=== PATIENT | male | born 1950 | race Caucasian/White ===

== ENCOUNTER 2018-02-05 08:40 | Emergency (ER) | payer MEDICAID, OTHER ==
[2018-02-05 08:46] VITALS: BMI 24.5
[2018-02-05 08:47] VITALS: RESP 16
[2018-02-05] MEDS ORDERED: Pantoprazole 40 mg EC Tab PO STA ×2 (08:57→10:06)
--- NOTE | 2018-02-05 09:00 | ED PDOC ---
HPI: Abdomen Time Seen by Provider: 02/05/18 08:57 Chief Complaint (Nursing): Abdominal Pain History Per: Patient Onset/Duration Of Symptoms: Days (2) Current Symptoms Are (Timing): Still Present Severity: Mild Pain Scale Rating Of: 2 Location Of Pain/Discomfort: Epigastric Quality Of Discomfort: Burning Associated Symptoms: denies: Fever, Nausea, Vomiting, Diarrhea Exacerbating Factors: None Alleviating Factors: None Additional Complaint(s): Burning epigastric pain x 2 days. Ran out of omeprazole 7 days ago. Denies NVD. Denies fever. Past Medical History Vital Signs: Last Vital Signs Temp 98.4 F 02/05/18 08:46 Pulse 87 02/05/18 08:46 Resp 16 02/05/18 08:46 BP 120/77 02/05/18 08:46 Pulse Ox 96 02/05/18 10:07 - Medical History PMH: Gastritis, HTN Denies: Anxiety, Bipolar Disorder, Depression, Paranoia, Post Traumatic Stress Disorder, Schizophrenia - Surgical History Surgical History: Denies: Appendectomy, CABG, Carotid Endarterectomy, Cholecystectomy, Coronary Stent, Tonsillectomy Other surgeries: Splenectomy post trauma - Family History Family History: States: Unknown Family Hx - Immunization History Hx Tetanus Toxoid Vaccination: Yes Hx Influenza Vaccination: No Hx Pneumococcal Vaccination: No - Home Medications Home Medications: Ambulatory Orders Medication Instructions Recorded Folic Acid 1 mg PO DAILY #14 tab 04/26/14 Metoprolol Tartrate [Lopressor] 25 mg PO BID #20 tab 04/26/14 Multivitamin Therapeutic Tab 1 tab PO DAILY #0 tab 04/26/14 [Thera Tab] Multivitamin [Hexavitamin] 1 tab PO DAILY #14 tab 04/26/14 Thiamine [B-1] 100 mg PO DAILY #14 tab 04/26/14 Omeprazole 40 mg PO DAILY #30 capsule. 02/05/18 - Allergies Allergies/Adverse Reactions: Allergies Allergy/AdvReac Type Severity Reaction Status Date / Time No Known Allergies Allergy Unverified 12/29/13 23:14 Review of Systems ROS Statement: Except As Marked, All Systems Reviewed And Found Negative Gastrointestinal: Positive for: Abdominal Pain. Negative for: Nausea, Vomiting , Diarrhea Physical Exam - Reviewed Nursing Documentation Reviewed: Yes Vital Signs Reviewed: Yes - Physical Exam Appears: Positive for: Non-toxic, No Acute Distress Head Exam: Positive for: ATRAUMATIC, NORMAL INSPECTION, NORMOCEPHALIC Skin: Positive for: Normal Color, Warm, DRY Eye Exam: Positive for: EOMI, Normal appearance, PERRL ENT: Positive for: Normal ENT Inspection Neck: Positive for: Normal, Painless ROM Cardiovascular/Chest: Positive for: Regular Rate, Rhythm Respiratory: Positive for: CNT, Normal Breath Sounds Gastrointestinal/Abdominal: Positive for: Soft, Tenderness (Mild epigastric tenderness.) Back: Positive for: Normal Inspection Extremity: Positive for: Normal ROM Neurologic/Psych: Positive for: Alert, Oriented - Laboratory Results Result Diagrams: 02/05/18 07:30 02/05/18 09:10 - ECG O2 Sat by Pulse Oximetry: 96 Disposition - Clinical Impression Clinical Impression: Gastritis - Patient ED Disposition Is Patient to be Admitted: No Counseled Patient/Family Regarding: Studies Performed, Diagnosis, Need For Followup, Rx Given - Disposition Referrals: Marques Shukla MD [Medical Doctor] - Disposition: Routine/Home Disposition Time: 10:05 Condition: FAIR Prescriptions: Omeprazole 40 mg PO DAILY #30 capsule. Instructions: Gastritis Forms: [facility] (Lao) Print Language: CITIZEN OF [place]
[2018-02-05] MEDS ORDERED: Pantoprazole 40 mg EC Tab PO ONE ×2 (09:14→11:01)
[2018-02-05 09:58] LABS: ALB/GLOB RATIO 1.3 (1.0-2.1); ALBUMIN 4.1 g/dL (3.5-5.0); ALT/SGPT 24 U/L (21-72); AST/SGOT 24 U/L (17-59); BLOOD UREA NITROGEN 7 mg/dl (9-20); CALCIUM 8.5 mg/dL (8.4-10.2); GFR AFRICAN-AMERICAN > 60; GFR NON-AFRICAN AMERICAN > 60
[2018-02-05 10:09] LABS: BASO # 0.1 K/uL (0.0-0.2); BASO % 0.8 % (0.0-2.0); EOS # 0.1 K/uL (0.0-0.7); EOS % 2.1 % (0.0-4.0); HEMOGLOBIN 12.2 g/dL (12.0-18.0); LYMPH # 1.7 K/uL (1.0-4.3); LYMPH % 24.8 % (20.0-40.0); MEAN CELL VOLUME 91.8 fl (80.0-94.0); MEAN CORPUSCULAR HGB CONC 33.8 g/dL (33.0-37.0); MEAN PLATELET VOLUME 8.8 fl (7.2-11.7); MONO # 0.9 K/uL (0.0-0.8); MONO % 13.7 % (0.0-10.0); NEUT % 58.6 % (50.0-75.0); NRBC % 0.3 % (0.0-0.0); RBC 3.92 Mil/uL (4.40-5.90); RED CELL DISTRIBUTION WIDTH 16.7 % (11.5-14.5); WHITE BLOOD COUNT 6.8 K/uL (4.8-10.8)
[2018-02-05 11:17] VITALS: BP 122/70; PULSE 82; TEMP 98.1; O2SAT 97
== END 2018-02-05 11:16 | disposition home or self-care (01) ==
LOC: H.ER 08:40
DX: K29.70 Gastritis, unspecified, without bleeding (principal); I10 Essential (primary) hypertension

== ENCOUNTER 2018-02-17 12:38 | Emergency (ER) | payer MEDICAID ==
[2018-02-17 12:38] VITALS: BMI 24.5
[2018-02-17 12:47] VITALS: TEMP 98.5; O2SAT 97
[2018-02-17 14:23] LABS: BASO # 0.1 K/uL (0.0-0.2); BASO % 1.1 % (0.0-2.0); EOS # 0.2 K/uL (0.0-0.7); EOS % 3.2 % (0.0-4.0); HEMOGLOBIN 12.2 g/dL (12.0-18.0); LYMPH % 35.7 % (20.0-40.0); MEAN CELL VOLUME 92.1 fl (80.0-94.0); MEAN CORPUSCULAR HEMOGLOBIN 30.8 pg (27.0-31.0); MEAN CORPUSCULAR HGB CONC 33.4 g/dL (33.0-37.0); MEAN PLATELET VOLUME 7.7 fl (7.2-11.7); MONO # 0.7 K/uL (0.0-0.8); NEUT # 2.6 K/uL (1.8-7.0); NRBC % 0.1 % (0.0-0.0); RBC 3.95 Mil/uL (4.40-5.90); RED CELL DISTRIBUTION WIDTH 16.1 % (11.5-14.5); WHITE BLOOD COUNT 5.5 K/uL (4.8-10.8)
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
[2018-02-17 14:48] LABS: SQUAMOUS EPITHIAL < 1 /hpf (0-5); URINE BACTERIA RARE (<OCC); URINE BILIRUBIN NEGATIVE (NEGATIVE); URINE BLOOD NEGATIVE (NEGATIVE); URINE CLARITY SLIGHTY-CLOUDY (Clear); URINE COLOR YELLOW (YELLOW); URINE GLUCOSE (UA) NEG (Normal); URINE LEUKOCYTE ESTERASE NEG Leu/uL (Negative); URINE PROTEIN NEGATIVE (NEGATIVE)
[2018-02-17 14:50] LABS: ALB/GLOB RATIO 1.3 (1.0-2.1); ALBUMIN 4.1 g/dL (3.5-5.0); ALT/SGPT 26 U/L (21-72); AST/SGOT 17 U/L (17-59); BLOOD UREA NITROGEN 8 mg/dl (9-20); CALCIUM 8.7 mg/dL (8.4-10.2); GFR AFRICAN-AMERICAN > 60; GFR NON-AFRICAN AMERICAN > 60; LIPASE 44 U/L (23-300)
[2018-02-17 15:06] LABS: INR 1.2; PROTHROMBIN TIME 12.8 Seconds (9.8-13.1)
[2018-02-17 15:08] LABS: PARTIAL THROMBOPLASTIN TIME 37.4 Seconds (25.6-37.1)
--- NOTE | 2018-02-17 15:12 | ED PDOC ---
- Laboratory Results Result Diagrams: 02/17/18 14:12 02/17/18 14:12 - ECG O2 Sat by Pulse Oximetry: 97 Medical Decision Making Medical Decision Makin:00 -Received patient endorsement by Dr. Montanez. Patient with abdominal pain pending CT scan, reassessment and final ER disposition. Accession No. : [id number] Patient Name / ID : AMINAH SANTIAGO / [id number] Exam Date : 02/17/2018 16:17:11 ( Addendum_Approved ) Study Comment : Sex / Age : M / 67Y Creator : Jonathan Abel MD Dictator : Jonathan Abel MD Child Custody Evaluator : Safety Technician : Jonathan Abel MD Approver2 : Report Date : 02/17/2018 17:05:09 My Comment : ADDENDUM: There is a prior study now available for review from 05/05/2014. The previously described postoperative changes are new since that study. In all likelihood, given the additional clinical information about the clinical presentation, this is likely ileus. Impression: Extensive postoperative changes. Given history and comparison with the prior study this likely represents ileus rather than early/incomplete small- bowel obstruction Communication of results: I discussed findings directly with the attending physician in the emergency department Dr. Gena Guzman. Addendum completed at 17: 34 [ Addendum Report Added by Jonathan Abel MD at 02/17/2018 17:34:30 ] Date of service: 02/17/2018 PROCEDURE: CT Abdomen and Pelvis with contrast HISTORY: upper abd pain, hx NSAID abuse COMPARISON: None. TECHNIQUE: Contrast dose: 85 cc Omnipaque 300. Radiation dose: Total exam DLP = 254.36 mGy-cm. This CT exam was performed using one or more of the following dose reduction techniques: Automated exposure control, adjustment of the mA and/or kV according to patient size, and/or use of iterative reconstruction technique. FINDINGS: LOWER THORAX: Unremarkable. LIVER: Hepatic steatosis. No focal masses. No intrahepatic bile duct dilatation or perihepatic ascites. GALLBLADDER AND BILE DUCTS: Unremarkable. PANCREAS: Unremarkable. No gross lesion or ductal dilatation. SPLEEN: Diminutive spleen likely related to prior splenectomy. ADRENALS: Unremarkable. No mass. KIDNEYS AND URETERS: Unremarkable. No hydronephrosis. No solid mass. VASCULATURE: Unremarkable. No aortic aneurysm. BOWEL: Focal dilatation of proximal small bowel loops likely early or incomplete small bowel obstruction. Postoperative findings/gastric surgical suture lines including gastroenterostomy identified. APPENDIX: No abnormalities to suggest acute appendicitis. No right lower quadrant inflammatory processes identified. PERITONEUM: Unremarkable. No free fluid. No free air. LYMPH NODES: Unremarkable. No enlarged lymph nodes. BLADDER: Unremarkable. REPRODUCTIVE: Unremarkable. BONES: No acute fracture. OTHER FINDINGS: None. IMPRESSION: Mildly dilated proximal loops of small bowel perhaps early or incomplete small bowel obstruction. Extensive postoperative changes left upper quadrant Additional benign and/or incidental findings described above. On reeval pt's abdominal benign with no tenderness or distension. Tolerated po and Pt eager to go home. Clinically is comfortable. Reviewed previous chart and pt had h/o of possible obstruction in 2013 that ultimately was nonsurgical. Most likely benign ileus like today. DW pt findings and plan of care. Clear fluid diet and follow up PMD in 24-48 hours. Disposition Counseled Patient/Family Regarding: Studies Performed, Diagnosis, Need For Followup, Rx Given - Clinical Impression Clinical Impression: Abdominal pain, Ileus, Gastritis - POA Present On Arrival: None - Disposition Referrals: Beti Roca MD [Medical Doctor] - 02/20/18 ([facility] DR NICOLE Gillis [facility]) Disposition: Routine/Home Disposition Time: 17:48 Condition: STABLE Prescriptions: Omeprazole 40 mg PO DAILY #30 capsule. Instructions: Stomach Ache and Stomach Upset Print Language: SLOVENIAN
[2018-02-17] MEDS ORDERED: Iohexol 300 100 ML IJ ONE (15:49)
[2018-02-17] MEDS ORDERED: Sodium Chloride 0.9% 50 ML IV ONE (15:49)
--- NOTE | 2018-02-17 17:04 | CARD ---
APPROVED REPORT Date of service: 02/17/2018 <Conclusion> Normal sinus rhythm Normal ECG
--- NOTE | 2018-02-17 17:07 | CT ---
Date of service: 02/17/2018 PROCEDURE: CT Abdomen and Pelvis with contrast HISTORY: upper abd pain, hx NSAID abuse COMPARISON: None. TECHNIQUE: Contrast dose: 85 cc Omnipaque 300. Radiation dose: Total exam DLP = 254.36 mGy-cm. This CT exam was performed using one or more of the following dose reduction techniques: Automated exposure control, adjustment of the mA and/or kV according to patient size, and/or use of iterative reconstruction technique. FINDINGS: LOWER THORAX: Unremarkable. LIVER: Hepatic steatosis. No focal masses. No intrahepatic bile duct dilatation or perihepatic ascites. GALLBLADDER AND BILE DUCTS: Unremarkable. PANCREAS: Unremarkable. No gross lesion or ductal dilatation. SPLEEN: Diminutive spleen likely related to prior splenectomy. ADRENALS: Unremarkable. No mass. KIDNEYS AND URETERS: Unremarkable. No hydronephrosis. No solid mass. VASCULATURE: Unremarkable. No aortic aneurysm. BOWEL: Focal dilatation of proximal small bowel loops likely early or incomplete small bowel obstruction. Postoperative findings/gastric surgical suture lines including gastroenterostomy identified. APPENDIX: No abnormalities to suggest acute appendicitis. No right lower quadrant inflammatory processes identified. PERITONEUM: Unremarkable. No free fluid. No free air. LYMPH NODES: Unremarkable. No enlarged lymph nodes. BLADDER: Unremarkable. REPRODUCTIVE: Unremarkable. BONES: No acute fracture. OTHER FINDINGS: None. IMPRESSION: Mildly dilated proximal loops of small bowel perhaps early or incomplete small bowel obstruction. Extensive postoperative changes left upper quadrant Additional benign and/or incidental findings described above.
[2018-02-17 18:23] VITALS: BP 124/70; PULSE 82; RESP 18
== END 2018-02-17 18:10 | disposition home or self-care (01) ==
LOC: H.ER 12:38
DX: K29.70 Gastritis, unspecified, without bleeding (principal); K56.7 Ileus, unspecified; I10 Essential (primary) hypertension
CPT/HCPCS: 74177; 80053; 81003; 83690; 85025; 85610; 85730; 93005; 96374; 99283; C9113; Q9967

== ENCOUNTER 2018-03-15 13:53 | Emergency (ER) | payer MEDICAID ==
[2018-03-15 13:54] VITALS: BMI 24.5
[2018-03-15 14:07] VITALS: BP 117/74; RESP 18; TEMP 98.1; O2SAT 99
[2018-03-15] MEDS ORDERED: Sodium Chloride 0.9% 1,000 ML IV STA ×2 (15:04→15:17)
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
[2018-03-15 15:24] LABS: BASO # 0.1 K/uL (0.0-0.2); BASO % 0.9 % (0.0-2.0); EOS # 0.2 K/uL (0.0-0.7); EOS % 2.3 % (0.0-4.0); HEMOGLOBIN 12.3 g/dL (12.0-18.0); LYMPH # 2.6 K/uL (1.0-4.3); LYMPH % 30.4 % (20.0-40.0); MEAN CELL VOLUME 91.5 fl (80.0-94.0); MEAN CORPUSCULAR HEMOGLOBIN 31.1 pg (27.0-31.0); MEAN CORPUSCULAR HGB CONC 33.9 g/dL (33.0-37.0); MEAN PLATELET VOLUME 7.8 fl (7.2-11.7); MONO # 0.7 K/uL (0.0-0.8); MONO % 7.5 % (0.0-10.0); NEUT # 5.1 K/uL (1.8-7.0); NEUT % 58.9 % (50.0-75.0); NRBC % 0.1 % (0.0-0.0); RBC 3.95 Mil/uL (4.40-5.90); RED CELL DISTRIBUTION WIDTH 15.9 % (11.5-14.5); WHITE BLOOD COUNT 8.6 K/uL (4.8-10.8)
[2018-03-15 15:31] VITALS: PULSE 86
[2018-03-15 16:07] LABS: ALB/GLOB RATIO 1.4 (1.0-2.1); ALBUMIN 4.1 g/dL (3.5-5.0); ALT/SGPT 22 U/L (21-72); AST/SGOT 21 U/L (17-59); BLOOD UREA NITROGEN 4 mg/dl (9-20); CALCIUM 8.7 mg/dL (8.4-10.2); GFR NON-AFRICAN AMERICAN > 60
--- NOTE | 2018-03-16 08:49 | CARD ---
APPROVED REPORT Date of service: 03/15/2018 <Conclusion> Normal sinus rhythm Left axis deviation Abnormal ECG
== END 2018-03-15 18:26 | disposition home or self-care (01) ==
LOC: H.ER 13:53
DX: R55 Syncope and collapse (principal); F10.129 Alcohol abuse with intoxication, unspecified; F17.200 Nicotine dependence, unspecified, uncomplicated; I10 Essential (primary) hypertension; Y90.3 Blood alcohol level of 60-79 mg/100 ml
CPT/HCPCS: 80053; 80320; 83605; 83735; 84100; 84484; 85025; 93005; 96361; 96374; 99284; J1885; J7030

== ENCOUNTER 2018-06-16 06:57 | Emergency (ER) | payer MEDICAID ==
[2018-06-16 07:00] VITALS: BMI 19.3
[2018-06-16] MEDS ORDERED: Albuterol-Ipratrop 3 mg / 0.5 (3 ml) UD INH STA (07:32)
[2018-06-16] MEDS ORDERED: Albuterol-Ipratrop 3 mg / 0.5 (3 ml) UD ONE (07:42)
--- NOTE | 2018-06-16 07:51 | ED PDOC ---
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 Patient reports he is currently homeless and stays at a homeless care home in [place]. Patient otherwise denies any chest pain, shortness of breath, vomiting, diarrhea, weakness, dizziness, abdominal pain, back pain, or urinary or bowel complaints. Past Medical History Reviewed: Historical Data, Nursing Documentation, Vital Signs Vital Signs: Last Vital Signs Temp 101 F H 06/16/18 07:46 Pulse 111 H 06/16/18 07:01 Resp 16 06/16/18 07:01 BP 138/76 06/16/18 07:01 Pulse Ox 96 06/16/18 07:01 - Medical History PMH: Dementia, Gastritis, HTN Denies: Anxiety, Bipolar Disorder, Depression, Paranoia, Post Traumatic Stress Disorder, Schizophrenia - Surgical History Surgical History: Denies: Appendectomy, CABG, Carotid Endarterectomy, Cholecystectomy, Coronary Stent, Tonsillectomy - Family History Family History: States: Unknown Family Hx - Immunization History Hx Tetanus Toxoid Vaccination: Yes Hx Influenza Vaccination: No Hx Pneumococcal Vaccination: No - Home Medications Home Medications: Ambulatory Orders Medication Instructions Recorded Omeprazole 40 mg PO DAILY #30 capsule. 02/05/18 Omeprazole 40 mg PO DAILY #30 capsule. 02/17/18 Ibuprofen [Motrin Tab] 600 mg PO Q8 PRN #60 tab 03/15/18 Omeprazole 40 mg PO DAILY #30 capsule. 03/15/18 Albuterol 0.5% [Albuterol 0.5% 2.5 mg IH Q6H PRN #3 inhaler 06/16/18 Inhal Oksana (2.5 mg/0.5 ml) UD] Azithromycin [Zithromax] 250 mg PO DAILY 5 Days tab 06/16/18 predniSONE [predniSONE Tab] 20 mg PO BID 5 Days tab 06/16/18 - Allergies Allergies/Adverse Reactions: Allergies Allergy/AdvReac Type Severity Reaction Status Date / Time No Known Allergies Allergy Verified 03/15/18 14:03 Review of Systems ROS Statement: Except As Marked, All Systems Reviewed And Found Negative Constitutional: Positive for: Fever ENT: Positive for: Nose Discharge (white), Nose Congestion Cardiovascular: Negative for: Chest Pain, Palpitations Respiratory: Positive for: Cough. Negative for: Shortness of Breath Gastrointestinal: Positive for: Nausea. Negative for: Vomiting, Abdominal Pain, Diarrhea, Constipation, Melena Genitourinary Male: Negative for: Dysuria, Frequency, Incontinence, Hematuria Musculoskeletal: Positive for: Other (body aches). Negative for: Back Pain Neurological: Positive for: Headache. Negative for: Weakness, Dizziness Physical Exam - Reviewed Nursing Documentation Reviewed: Yes Vital Signs Reviewed: Yes - Physical Exam Appears: Positive for: Non-toxic, No Acute Distress Head Exam: Positive for: ATRAUMATIC, NORMAL INSPECTION, NORMOCEPHALIC Skin: Positive for: Normal Color, Warm, Dry. Negative for: Rash Eye Exam: Positive for: EOMI, Normal appearance, PERRL ENT: Positive for: Nasal Congestion Neck: Positive for: Normal, Painless ROM, Supple Cardiovascular/Chest: Positive for: Regular Rate, Rhythm. Negative for: Murmur Respiratory: Positive for: Wheezing (trace expiratory wheezing) Gastrointestinal/Abdominal: Positive for: Normal Exam, Soft. Negative for: Tenderness Back: Positive for: Normal Inspection. Negative for: L CVA Tenderness, R CVA Tenderness, Vertebral Tenderness Extremity: Positive for: Normal ROM. Negative for: Pedal Edema, Deformity Neurologic/Psych: Positive for: Alert, Oriented. Negative for: Motor/Sensory Deficits Medical Decision Making Medical Decision Makin Plan: -CXR -Duoneb 3mL IH -Tylenol 975mg PO -Prednisone 60mg PO -Peak flow pre/post-treatment -Flu swab -Reevaluation Scribe Attestation: Documented by Logan Rico, acting as a scribe for Sergei Kwan MD. Provider Scribe Attestation: All medical record entries made by the Scribe were at my direction and personally dictated by me. I have reviewed the chart and agree that the record accurately reflects my personal performance of the history, physical exam, medical decision making, and the department course for this patient. I have also personally directed, reviewed, and agree with the discharge instructions and disposition. - ECG O2 Sat by Pulse Oximetry: 96 (RA) Pulse Ox Interpretation: Normal - Radiology X-Ray: Read By Radiologist X-Ray Interpretation: Infiltrates (mild right) - Progress ED Course And Treament: 853: Stable. AAOx3. Tolerated PO. Borderline pneumonia. Will rx zithromax. Steroids and albuterol. Breathing well. Disposition - Clinical Impression Clinical Impression: Pneumonia - Patient ED Disposition Is Patient to be Admitted: No Counseled Patient/Family Regarding: Studies Performed, Diagnosis, Need For Followup, Rx Given - Disposition Referrals: [facility] [Outside] - 06/19/18 Disposition: Routine/Home Disposition Time: 08:54 Condition: STABLE Additional Instructions: Return if not better in 3 days. Prescriptions: Albuterol 0.5% [Albuterol 0.5% Inhal Oksana (2.5 mg/0.5 ml) UD] 2.5 mg IH Q6H PRN #3 inhaler PRN Reason: Shortness Of Breath Azithromycin [Zithromax] 250 mg PO DAILY 5 Days tab predniSONE [predniSONE Tab] 20 mg PO BID 5 Days tab Instructions: Pneumonia in Adults Print Language: FRISIAN
--- NOTE | 2018-06-16 08:34 | RAD ---
Date of service: 06/16/2018 HISTORY: dyspnea COMPARISON: Chest radiographs 10/30/2010. FINDINGS: LUNGS: Borderline patchy density is question developing in the right base with linear atelectasis identified in the left base versus fibrosis. No prominent pneumonia appreciated bilaterally. PLEURA: No significant pleural effusion identified, no pneumothorax apparent. CARDIOVASCULAR: Calcific atherosclerotic changes are seen related to the thoracic aorta. Normal cardiac size. No pulmonary vascular congestion. OSSEOUS STRUCTURES: No significant abnormalities. VISUALIZED UPPER ABDOMEN: Normal. OTHER FINDINGS: None. IMPRESSION: Borderline early right basilar patchy infiltrate. Linear atelectasis or fibrosis left base. Remainder of the examination is stable and unremarkable appearing.
[2018-06-16 10:15] VITALS: BP 130/78; PULSE 98; RESP 19; TEMP 99; O2SAT 97
== END 2018-06-16 12:00 | disposition home or self-care (01) ==
LOC: H.ER 06:57
DX: J18.9 Pneumonia, unspecified organism (principal); F03.90 Unspecified dementia, unspecified severity, without behavioral disturbance, psychotic disturbance, mood disturbance, and anxiety; I10 Essential (primary) hypertension

== ENCOUNTER 2018-06-17 03:47 | Inpatient (IN) | payer MEDICAID ==
[2018-06-17] MEDS ORDERED: Sodium Chloride 0.9% 1,000 ML IV STA (04:01)
--- NOTE | 2018-06-17 04:26 | ED PDOC ---
HPI: Chest Pain Time Seen by Provider: 06/17/18 03:55 Chief Complaint (Nursing): Chest Pain Chief Complaint (Provider): Chest Pain History Per: Patient History/Exam Limitations: no limitations Onset/Duration Of Symptoms: Days (x7) Quality: Tightness Additional Complaint(s): 68 years old male with history of active smoking presents to ER for evaluation of cough and chest tightness onset 7 days ago. Patient reports he went to see Dr. Shukla, who prescribed cough medication and Ibuprofen but cough persisted. He sates he was in ER yesterday for fever and cough, was given some treatment but still feeling sick. Patient reports feeling worse today than yesterday. He r eports coughing up yellow phlegm. Patient denies any sick contact or recent travel. PMD: non provided Past Medical History Reviewed: Historical Data, Nursing Documentation, Vital Signs Vital Signs: Last Vital Signs Temp 101.1 F H 06/17/18 04:09 Pulse 145 H 06/17/18 04:09 Resp 26 H 06/17/18 04:09 BP 132/96 H 06/17/18 04:09 Pulse Ox 93 L 06/17/18 04:09 - Medical History PMH: Dementia, Gastritis, HTN Denies: Anxiety, Bipolar Disorder, Depression, Paranoia, Post Traumatic Stress Disorder, Schizophrenia - Surgical History Surgical History: Denies: Appendectomy, CABG, Carotid Endarterectomy, Cholecystectomy, Coronary Stent, Tonsillectomy - Family History Family History: States: Unknown Family Hx - Social History Current smoker - smoking cessation education provided: Yes Alcohol: Occasional Drugs: Denies - Immunization History Hx Tetanus Toxoid Vaccination: Yes Hx Influenza Vaccination: No Hx Pneumococcal Vaccination: No - Home Medications Home Medications: Ambulatory Orders Medication Instructions Recorded Ibuprofen [Motrin Tab] 600 mg PO Q8 PRN #60 tab 03/15/18 Omeprazole 40 mg PO DAILY #30 capsule. 03/15/18 predniSONE [predniSONE Tab] 20 mg PO BID 5 Days tab 06/16/18 Cyproheptadine HCl 4 mg PO BID 06/17/18 Donepezil HCl [Aricept] 10 mg PO DAILY 06/17/18 Gabapentin [Neurontin] 100 mg PO BID 06/17/18 - Allergies Allergies/Adverse Reactions: Allergies Allergy/AdvReac Type Severity Reaction Status Date / Time No Known Allergies Allergy Verified 03/15/18 14:03 Review of Systems ROS Statement: Except As Marked, All Systems Reviewed And Found Negative Cardiovascular: Positive for: Chest Pain (tightness) Respiratory: Positive for: Cough (with yellow phlegm) Physical Exam - Reviewed Nursing Documentation Reviewed: Yes Vital Signs Reviewed: Yes - Physical Exam Appears: Positive for: No Acute Distress Head Exam: Positive for: ATRAUMATIC, NORMOCEPHALIC Skin: Positive for: Normal Color, Warm (to touch), Dry Eye Exam: Positive for: Normal appearance, EOMI, PERRL ENT: Positive for: Normal ENT Inspection Neck: Positive for: Normal, Painless ROM, Supple Cardiovascular/Chest: Positive for: Regular Rate, Rhythm, Tachycardia Respiratory: Positive for: Normal Breath Sounds. Negative for: Wheezing Gastrointestinal/Abdominal: Positive for: Normal Exam, Soft. Negative for: Tenderness Back: Positive for: Normal Inspection. Negative for: L CVA Tenderness, R CVA Tenderness Extremity: Positive for: Normal ROM. Negative for: Tenderness, Deformity Neurologic/Psych: Positive for: Alert, Oriented (x3) - Laboratory Results Result Diagrams: 06/17/18 04:39 06/17/18 04:39 - ECG O2 Sat by Pulse Oximetry: 93 (RA) Pulse Ox Interpretation: Abnormal Medical Decision Making Medical Decision Making: Time: 400 A/P: 8 y/o male presents with fever and cough for 2 week --Patient is febrile and tachycardic, likely septic --Will treat for sepsis with fluids and antibiotics --Closely monitor patient 0600 --Patient has opacity (possibly multiple) on CXR --Will treat for CAP --Dr. Cho aware --Will admit to Tele ------- Scribe Attestation: Documented by Mackenzie Aguirre, acting as a scribe for Gil Bernal MD. Provider Scribe Attestation: All medical record entries made by the Scribe were at my direction and personally dictated by me. I have reviewed the chart and agree that the record accurately reflects my personal performance of the history, physical exam, medical decision making, and the department course for this patient. I have also personally directed, reviewed, and agree with the discharge instructions and disposition. Disposition - Clinical Impression Clinical Impression: Pneumonia, Sepsis - Disposition Disposition Time: 06:00 Condition: FAIR
[2018-06-17] MEDS ORDERED: Azithromycin 500 MG in Sodium Chloride 0.9% 250 ML IVPB STA (04:46)
[2018-06-17] MEDS ORDERED: cefTRIAXone 2 GM in Sodium Chloride 0.9% 100 ML IVPB STA (04:46)
[2018-06-17] MEDS ORDERED: Albuterol-Ipratrop 3 mg / 0.5 (3 ml) UD INH STA (04:47)
[2018-06-17 04:48] LABS: VENOUS BLOOD GAS BASE EXCESS 2.5 mmol/L (0.0-2.0); VENOUS BLOOD GAS PCO2 37 mmHg (40-60); VENOUS BLOOD GAS PO2 29 mm/Hg (30-55); VENOUS BLOOD PH 7.46 (7.32-7.43)
[2018-06-17 04:50] LABS: BASO % 0.4 % (0.0-2.0); HEMOGLOBIN 11.5 g/dL (12.0-18.0); LYMPH # 0.9 K/uL (1.0-4.3); LYMPH % 10.7 % (20.0-40.0); MEAN CELL VOLUME 88.6 fl (80.0-94.0); MEAN CORPUSCULAR HEMOGLOBIN 29.1 pg (27.0-31.0); MEAN CORPUSCULAR HGB CONC 32.8 g/dL (33.0-37.0); MEAN PLATELET VOLUME 8.1 fl (7.2-11.7); MONO % 11.6 % (0.0-10.0); NEUT # 6.6 K/uL (1.8-7.0); NEUT % 77.3 % (50.0-75.0); RBC 3.95 Mil/uL (4.40-5.90); RED CELL DISTRIBUTION WIDTH 16.1 % (11.5-14.5); WHITE BLOOD COUNT 8.6 K/uL (4.8-10.8)
[2018-06-17 04:53] LABS: INR 1.3; PROTHROMBIN TIME 15.2 Seconds (9.8-13.1)
[2018-06-17] MEDS ORDERED: cefTRIAXone (Rocephin) 1 gm Inj ONE (04:54)
[2018-06-17] MEDS ORDERED: Albuterol-Ipratrop 3 mg / 0.5 (3 ml) UD ONE (04:55)
[2018-06-17 04:58] LABS: ALBUMIN 3.9 g/dL (3.5-5.0); ALT/SGPT 24 U/L (21-72); AST/SGOT 22 U/L (17-59); BLOOD UREA NITROGEN 10 mg/dl (9-20); CALCIUM 8.6 mg/dL (8.4-10.2); GFR NON-AFRICAN AMERICAN > 60
[2018-06-17] MEDS ORDERED: Azithromycin 500 MG IV IVPB ONE (05:01)
[2018-06-17 05:50] LABS: SQUAMOUS EPITHIAL < 1 /hpf (0-5); URINE BACTERIA RARE (<OCC); URINE BILIRUBIN NEGATIVE (NEGATIVE); URINE BLOOD MODERATE (NEGATIVE); URINE CLARITY CLOUDY (Clear); URINE COLOR YELLOW (YELLOW); URINE GLUCOSE (UA) NEG (Normal); URINE LEUKOCYTE ESTERASE NEG Leu/uL (Negative); URINE PROTEIN 100 mg/dL (NEGATIVE)
[2018-06-17 07:20] LABS: VENOUS BLOOD GAS BASE EXCESS -3.6 mmol/L (0.0-2.0); VENOUS BLOOD GAS PCO2 34 mmHg (40-60); VENOUS BLOOD GAS PO2 36 mm/Hg (30-55); VENOUS BLOOD PH 7.39 (7.32-7.43)
--- NOTE | 2018-06-17 08:18 | RAD ---
Date of service: 06/17/2018 HISTORY: Sepsis Patient COMPARISON: 06/16/2018 FINDINGS: LUNGS: Mild interstitial changes with possible consolidation in the right lower lobe new since prior exam. PLEURA: No significant pleural effusion identified, no pneumothorax apparent. CARDIOVASCULAR: Aortic calcifications. Normal cardiac size. No pulmonary vascular congestion. OSSEOUS STRUCTURES: No significant abnormalities. VISUALIZED UPPER ABDOMEN: Normal. OTHER FINDINGS: None. IMPRESSION: Mild interstitial changes with possible consolidation in the right lower lobe new since prior exam.
[2018-06-17] MEDS: Pantoprazole 40 mg EC Tab PO SCH (09:02)
[2018-06-17] MEDS: Enoxaparin 40 mg Syringe SC SCH (09:09)
[2018-06-17] MEDS ORDERED: Influenza Vaccine (5 YR UP)/PF 60 MCG/0.5 ML SYR IM ONE (11:28)
[2018-06-17] MEDS ORDERED: Pneumococcal 23-Valent Vaccine IM ONE (11:28)
--- NOTE | 2018-06-17 17:33 | CARD ---
APPROVED REPORT Date of service: 06/17/2018 EKG Measurement Heart [id number] <Conclusion> Sinus tachycardia Left axis deviation Anteroseptal infarct, age undetermined Abnormal ECG
[2018-06-18] MEDS: Pantoprazole 40 mg EC Tab PO SCH (08:51)
[2018-06-18] MEDS: Enoxaparin 40 mg Syringe SC SCH (08:51)
[2018-06-18] MEDS: Azithromycin 500 MG in Sodium Chloride 0.9% 250 ML IVPB SCH (08:52)
[2018-06-18] MEDS: cefTRIAXone 2 GM in Sodium Chloride 0.9% 100 ML IVPB SCH (08:53)
--- NOTE | 2018-06-18 11:33 | PN ---
DATE: 06/18/2018 SUBJECTIVE: The patient was seen and examined. Interim events noted. The patient remains in the Progressive Care Unit. The patient feels better, coughing improved. No chest pain. No shortness of breath. The patient is ambulatory. The patient looks otherwise and better. PHYSICAL EXAMINATION: GENERAL: The patient is in no acute distress. VITAL SIGNS: Stable. HEART: S1 and S2 normal and regular. LUNGS: Good bilateral air exchange. ABDOMEN: Soft and nontender. EXTREMITIES: No edema. No calf swelling. No tenderness. No acute ischemia. CENTRAL NERVOUS SYSTEM: Essential unchanged. DIAGNOSTIC DATA: Available diagnostic data is reviewed. ASSESSMENT AND PLAN: Overall, the patient's general medical condition is improved. Telemetry monitoring does not show arrhythmia. Plan as ordered. Jhon Cho MD
[2018-06-19 05:31] LABS: HEMOGLOBIN 11.5 g/dL (12.0-18.0); MEAN CORPUSCULAR HEMOGLOBIN 29.5 pg (27.0-31.0); MEAN CORPUSCULAR HGB CONC 33.2 g/dL (33.0-37.0); RBC 3.9 Mil/uL (4.40-5.90); RED CELL DISTRIBUTION WIDTH 16.3 % (11.5-14.5); WHITE BLOOD COUNT 6.7 K/uL (4.8-10.8)
[2018-06-19 06:02] LABS: ALB/GLOB RATIO 0.9 (1.0-2.1); ALBUMIN 3.1 g/dL (3.5-5.0); ALT/SGPT 24 U/L (21-72); AST/SGOT 14 U/L (17-59); BLOOD UREA NITROGEN 4 mg/dl (9-20); CALCIUM 8.5 mg/dL (8.4-10.2); GFR NON-AFRICAN AMERICAN > 60
[2018-06-19] MEDS: Pantoprazole 40 mg EC Tab PO SCH (08:12)
[2018-06-19] MEDS: Enoxaparin 40 mg Syringe SC SCH (08:13)
--- NOTE | 2018-06-19 08:34 | HP ---
CHIEF COMPLAINT: Fever and cough. HISTORY OF PRESENT ILLNESS: The patient is not a good historian, but available history is as follows: This is a 68-year-old male with known history of hypertension and gastritis who was feeling sick for couple of days for which he went to primary care physician and was treated symptomatically. He also visited the emergency room and was also again treated and discharged. The patient continued to feel worse and came back to the emergency room as the patient's fever started going high, up to 102. The patient was evaluated in the emergency room and was found to have pneumonia and was admitted for further management. REVIEW OF SYSTEMS: Positive for generalized malaise, weakness, fatigue, tired, cough, chest pain, discomfort, and high fever. Review of systems otherwise is negative for headache, dizziness, syncope, loss of consciousness, nausea, vomiting, diarrhea, constipation, any new joint or extremity pain. Review of system of all other organ system is unremarkable. PAST MEDICAL HISTORY: Significant for hypertension. PAST SURGICAL HISTORY: Unremarkable. PERSONAL HISTORY: The patient is currently nonsmoker, nondrinker. No alcohol or substance abuse. MEDICATIONS: The patient is on medications, which is as per reconciliation sheet, which was reviewed and ordered. ALLERGIES: THE PATIENT IS NOT ALLERGIC TO ANY MEDICATIONS. FAMILY HISTORY: Noncontributory. PHYSICAL EXAMINATION: GENERAL: A well-built, well-nourished, disheveled male in no acute distress. VITAL SIGNS: Temperature 101, pulse 90, respirations 18, blood pressure 110/70. HEENT: Pupils reacting to light. No JVD. No thyromegaly. No lymphadenopathy. No nystagmus. Normocephalic, atraumatic skull. HEART: S1 and S2, normal, regular. No significant murmur, gallop, or rub is heard. LUNGS: Show good bilateral air exchange. The patient has crepitation. ABDOMEN: Soft, nontender. No organomegaly. No fluid. Bowel sounds are plus and normal. EXTREMITIES: No edema. No calf swelling. No tenderness. No acute ischemia. CENTRAL NERVOUS SYSTEM: Essentially unchanged. There is no sign of any acute gross focal motor or sensory neurological deficits. DIAGNOSTIC DATA: Available diagnostic data reviewed. Telemetry monitoring so far does not reveal significant arrhythmia. Chest x-ray seems to be overly penetrated film, pneumonia. WBCs are acceptable sodium . ADMITTING IMPRESSION: Community-acquired pneumonia, hypertension, gastritis. PLAN: As ordered. Case and plan discussed with the patient. Jhon Cho MD
[2018-06-19] MEDS: cefTRIAXone 2 GM in Sodium Chloride 0.9% 100 ML IVPB SCH (10:59)
[2018-06-19] MEDS: Azithromycin 500 MG in Sodium Chloride 0.9% 250 ML IVPB SCH (10:59)
--- NOTE | 2018-06-19 11:01 | PN ---
DATE: 06/19/2018 SUBJECTIVE: The patient seen and examined. Interim events noted. The patient remains in progressive care unit on telemetry monitoring. Feels improved. No cough. No shortness of breath. No chest pain. The patient was able to ambulate. The patient is eating well. Coughing improved. No chest pain. No shortness of breath. PHYSICAL EXAMINATION: GENERAL The patient is in no acute distress. VITAL SIGNS: Stable. HEART: S1, S2 normal and regular. LUNGS: Good bilateral air exchange. ABDOMEN: Soft, nontender. EXTREMITIES: No edema. No calf swelling. No tenderness. No acute ischemia. CENTRAL NERVOUS SYSTEM: Exam is essentially unchanged. DIAGNOSTIC DATA: Available diagnostic data reviewed. ASSESSMENT AND PLAN: Overall, the patient's general medical condition is stable and improving. Telemetry monitoring does not reveal significant arrhythmias. Plan as ordered. Jhon Cho MD
[2018-06-20 05:47] LABS: HEMOGLOBIN 11.7 g/dL (12.0-18.0); MEAN CELL VOLUME 88.4 fl (80.0-94.0); MEAN CORPUSCULAR HEMOGLOBIN 29.7 pg (27.0-31.0); MEAN CORPUSCULAR HGB CONC 33.6 g/dL (33.0-37.0); RBC 3.94 Mil/uL (4.40-5.90); RED CELL DISTRIBUTION WIDTH 16.2 % (11.5-14.5); WHITE BLOOD COUNT 5.4 K/uL (4.8-10.8)
[2018-06-20 06:09] LABS: BLOOD UREA NITROGEN 5 mg/dl (9-20); CALCIUM 8.6 mg/dL (8.4-10.2); GFR NON-AFRICAN AMERICAN > 60
--- NOTE | 2018-06-20 08:27 | CP.PCM.PN ---
<Aakash Modi - Last Filed: 06/20/18 08:28> Subjective - Date & Time of Evaluation Date of Evaluation: 06/20/18 Time of Evaluation: 08:05 - Subjective Subjective: Patient seen and examined at the bedside with Dr. Cho. Reports he feels better. No acute distress noted. Objective - Vital Signs/Intake and Output Vital Signs (last 24 hours): Temp Pulse Resp BP Pulse Ox 98.6 F 85 16 112/64 96 06/20/18 06:01 06/20/18 06:01 06/20/18 06:01 06/20/18 06:01 06/20/18 06:01 - Medications Medications: Current Medications Acetaminophen (Tylenol 325mg Tab) 975 mg PO ONCE PRN PRN Reason: Fever >100.4 F Last Admin: 06/17/18 04:23 Dose: 975 mg Acetaminophen (Tylenol 325mg Tab) 650 mg PO Q6 PRN PRN Reason: Fever >100.4 F Last Admin: 06/19/18 00:09 Dose: 650 mg Cyproheptadine HCl (Periactin) 4 mg PO BID [facility] Last Admin: 06/19/18 16:18 Dose: 4 mg Donepezil HCl (Aricept) 10 mg PO DAILY [facility] Last Admin: 06/19/18 08:12 Dose: 10 mg Enoxaparin Sodium (Lovenox) 40 mg SC DAILY [facility]; Protocol Last Admin: 06/19/18 08:13 Dose: 40 mg Gabapentin (Neurontin) 100 mg PO BID [facility] Last Admin: 06/19/18 16:18 Dose: 100 mg Azithromycin 500 mg/ Sodium (Chloride) 250 mls @ 250 mls/hr IVPB DAILY [facility]; P rotocol Last Admin: 06/19/18 10:59 Dose: 250 mls/hr Ceftriaxone Sodium 2 gm/ (Sodium Chloride) 100 mls @ 100 mls/hr IVPB DAILY [facility]; Protocol Last Admin: 06/19/18 10:59 Dose: 100 mls/hr Mirtazapine (Remeron) 15 mg PO HS [facility] Last Admin: 06/19/18 22:00 Dose: 15 mg Pantoprazole Sodium (Protonix Ec Tab) 40 mg PO DAILY [facility] Last Admin: 06/19/18 08:12 Dose: 40 mg - Labs Labs: 06/20/18 05:20 06/20/18 05:20 PT 15.2 Seconds (9.8-13.1) H 06/17/18 04:39 INR 1.3 06/17/18 04:39 APTT 34.0 Seconds (25.6-37.1) 06/17/18 04:39 - Constitutional Appears: No Acute Distress - Head Exam Head Exam: NORMAL INSPECTION - Eye Exam Eye Exam: Normal appearance - Respiratory Exam Respiratory Exam: Clear to Ausculation Bilateral, Rales (mild rales, R Lower base). absent: Accessory Muscle Use, Wheezes - Cardiovascular Exam Cardiovascular Exam: REGULAR RHYTHM, +S1, +S2 - GI/Abdominal Exam GI & Abdominal Exam: Normal Bowel Sounds - Extremities Exam Extremities Exam: absent: Pedal Edema - Neurological Exam Neurological Exam: Alert, Awake - Psychiatric Exam Psychiatric exam: Normal Affect - Skin Skin Exam: Normal Color Assessment and Plan - Assessment and Plan (Free Text) Assessment: 68 y/o male admitted for Sepsis secondary to HCAP. -No longer meets sepctic criteria, hemodynamically stable, no leukocytosis -Sputum Cx gram + cocci in chains (strep) gram + bacilli (prelim) -Bcx no growth -Will continue to treat for HCAP- Ceftriaxone and Azithromycin -F/U with PT recommendations for dipso -Consider changing to po abx Discussed case with Dr. Cho <Jhon Cho - Last Filed: 06/21/18 18:47> Objective - Vital Signs/Intake and Output Vital Signs (last 24 hours): Temp Pulse Resp BP Pulse Ox 98.6 F 79 16 126/75 95 06/21/18 15:52 06/21/18 15:52 06/21/18 15:52 06/21/18 15:52 06/21/18 15:52 Intake and Output: 06/21/18 06/21/18 11:59 23:59 Intake Total 1550 Balance 1550 - Medications Medications: Current Medications Acetaminophen (Tylenol 325mg Tab) 975 mg PO ONCE PRN PRN Reason: Fever >100.4 F Last Admin: 06/17/18 04:23 Dose: 975 mg Acetaminophen (Tylenol 325mg Tab) 650 mg PO Q6 PRN PRN Reason: Fever >100.4 F Last Admin: 06/19/18 00:09 Dose: 650 mg Cyproheptadine HCl (Periactin) 4 mg PO BID [facility] Last Admin: 06/21/18 16:51 Dose: 4 mg Donepezil HCl (Aricept) 10 mg PO DAILY [facility] Last Admin: 06/21/18 09:41 Dose: 10 mg Enoxaparin Sodium (Lovenox) 40 mg SC DAILY [facility]; Protocol Last Admin: 06/21/18 09:41 Dose: 40 mg Gabapentin (Neurontin) 100 mg PO BID [facility] Last Admin: 06/21/18 16:50 Dose: 100 mg Azithromycin 500 mg/ Sodium (Chloride) 250 mls @ 250 mls/hr IVPB DAILY [facility]; Protocol Last Admin: 06/21/18 10:56 Dose: 250 mls/hr Ceftriaxone Sodium 2 gm/ (Sodium Chloride) 100 mls @ 100 mls/hr IVPB DAILY [facility]; Protocol Last Admin: 06/21/18 09:45 Dose: 100 mls/hr Mirtazapine (Remeron) 15 mg PO HS [facility] Last Admin: 06/20/18 21:09 Dose: 15 mg Pantoprazole Sodium (Protonix Ec Tab) 40 mg PO DAILY [facility] Last Admin: 06/21/18 09:44 Dose: 40 mg - Labs Labs: 06/21/18 04:45 06/21/18 04:45 PT 15.2 Seconds (9.8-13.1) H 06/17/18 04:39 INR 1.3 06/17/18 04:39 APTT 34.0 Seconds (25.6-37.1) 06/17/18 04:39 Assessment and Plan - Assessment and Plan (Free Text) Assessment: Patient was personally seen and examined by me in rounds with residents. Available labs and diagnostic data reviewed. Case, Patient's condition and management plan discussed with residents in rounds. Agree with resident's progress note. Plan: As ordered.
[2018-06-20] MEDS: Enoxaparin 40 mg Syringe SC SCH (08:34)
[2018-06-20] MEDS: Pantoprazole 40 mg EC Tab PO SCH (08:34)
[2018-06-20] MEDS: cefTRIAXone 2 GM in Sodium Chloride 0.9% 100 ML IVPB SCH (08:36)
[2018-06-20] MEDS: Azithromycin 500 MG in Sodium Chloride 0.9% 250 ML IVPB SCH (08:42)
--- NOTE | 2018-06-20 10:19 | RAD ---
Date of service: 06/20/2018 HISTORY: f/u pna COMPARISON: 06/17/2018 TECHNIQUE: Chest PA and lateral FINDINGS: LUNGS: No infiltrate. Pulmonary hyperinflation consistent with emphysema. PLEURA: No significant pleural effusion identified. No pneumothorax apparent. CARDIOVASCULAR: No aortic atherosclerotic calcification present. Normal cardiac size. No pulmonary vascular congestion. OSSEOUS STRUCTURES: No significant abnormalities. VISUALIZED UPPER ABDOMEN: Normal. OTHER FINDINGS: None. IMPRESSION: Emphysema. No acute infiltrate.
--- NOTE | 2018-06-20 12:36 | CP.PCM.PCO ---
Assessment & Plan - Assessment and Plan (Free Text) Assessment: pt. reports feeling depressed, hopeless and helpless, reports poor appetite denies suicidal ideation f/u cxray, neg psych consult for depression
--- NOTE | 2018-06-20 15:10 | CP.PCM.CON ---
History of Present Illness - History of Present Illness History of Present Illness: consult requested for depression pt is a 68 years old male with history of active smoking presents to ER for evaluation of cough and chest tightness, admitted to medical floor for chest pain pt on evaluation reported long history of depression almost 20 years ago since he immigrated to [facility] from [place], pt stated he has multiple admissions at [facility] , reported he has one suicidal attempt in 2013 by jumping infront of a car, pt currently severely depressed, as he has no social support, homeless, reported poor energy , poor sleep, poor motivation and passive suicidal ideation pt speech is soft and slow, appears unkempt, partial eye contact depressed mood and affect alert awake oriented to person and place Past Patient History - Past Medical History & Family History Past Medical History?: No - Past Social History Smoking Status: Light Smoker < 10 Cigarettes Daily - CARDIAC Hx Cardiac Disorders: Yes Hx Hypertension: Yes - PULMONARY Hx Respiratory Disorders: No - NEUROLOGICAL Hx Neurological Disorder: Yes Hx Dementia: Yes - HEENT Hx HEENT Problems: No - RENAL Hx Chronic Kidney Disease: No - ENDOCRINE/METABOLIC Hx Endocrine Disorders: No - HEMATOLOGICAL/ONCOLOGICAL Hx Blood Disorders: No Hx AIDS: No Hx Human Immunodeficiency Virus (HIV): No - INTEGUMENTARY Hx Dermatological Problems: No - MUSCULOSKELETAL/RHEUMATOLOGICAL Hx Musculoskeletal Disorders: No Hx Falls: No - GASTROINTESTINAL Hx Gastrointestinal Disorders: Yes Hx Gastritis: Yes - GENITOURINARY/GYNECOLOGICAL Hx Genitourinary Disorders: No - PSYCHIATRIC Hx Psychophysiologic Disorder: No Hx Anxiety: No Hx Bipolar Disorder: No Hx Depression: No Hx Paranoia: No Hx Post Traumatic Stress Disorder: No Hx Schizophrenia: No Hx Substance Use: No - SURGICAL HISTORY Hx Surgeries: No - ANESTHESIA Hx Anesthesia: No Hx Anesthesia Reactions: No Hx Malignant Hyperthermia: No Meds Allergies/Adverse Reactions: Allergies Allergy/AdvReac Type Severity Reaction Status Date / Time No Known Allergies Allergy Verified 03/15/18 14:03 - Medications Medications: Current Medications Acetaminophen (Tylenol 325mg Tab) 975 mg PO ONCE PRN PRN Reason: Fever >100.4 F Last Admin: 06/17/18 04:23 Dose: 975 mg Acetaminophen (Tylenol 325mg Tab) 650 mg PO Q6 PRN PRN Reason: Fever >100.4 F Last Admin: 06/19/18 00:09 Dose: 650 mg Cyproheptadine HCl (Periactin) 4 mg PO BID [facility] Last Admin: 06/20/18 08:34 Dose: 4 mg Donepezil HCl (Aricept) 10 mg PO DAILY [facility] Last Admin: 06/20/18 08:34 Dose: 10 mg Enoxaparin Sodium (Lovenox) 40 mg SC DAILY [facility]; Protocol Last Admin: 06/20/18 08:34 Dose: 40 mg Gabapentin (Neurontin) 100 mg PO BID [facility] Last Admin: 06/20/18 08:34 Dose: 100 mg Azithromycin 500 mg/ Sodium (Chloride) 250 mls @ 250 mls/hr IVPB DAILY [facility]; Protocol Last Admin: 06/20/18 08:42 Dose: 250 mls/hr Ceftriaxone Sodium 2 gm/ (Sodium Chloride) 100 mls @ 100 mls/hr IVPB DAILY [facility]; Protocol Last Admin: 06/20/18 08:36 Dose: 100 mls/hr Mirtazapine (Remeron) 15 mg PO [facility] Last Admin: 06/19/18 22:00 Dose: 15 mg Pantoprazole Sodium (Protonix Ec Tab) 40 mg PO DAILY [facility] Last Admin: 06/20/18 08:34 Dose: 40 mg Results - Vital Signs Recent Vital Signs: Last Vital Signs Temp 98.8 F 06/20/18 08:28 Pulse 71 06/20/18 08:28 Resp 18 06/20/18 08:28 BP 124/60 06/20/18 08:28 Pulse Ox 99 06/20/18 08:28 - Labs Result Diagrams: 06/20/18 05:20 06/20/18 05:20 Labs: Laboratory Results - last 24 hr 06/20/18 06/20/18 05:20 05:20 WBC 5.4 RBC 3.94 L Hgb 11.7 L Hct 34.9 L MCV 88.4 MCH 29.7 MCHC 33.6 RDW 16.2 H Plt Count 444 H Sodium 135 Potassium 4.1 Chloride 101 Carbon Dioxide 24 Anion Gap 14 BUN 5 L Creatinine 0.5 L Est GFR ( Amer) > 60 Est GFR (Non-Af Amer) > 60 Random Glucose 101 Calcium 8.6 Assessment & Plan - Assessment and Plan (Free Text) Assessment: major depression recurrent severe Plan: pt at current mental status presenting with depressed mood and affect, pt would benefit from admission to psychiatry upon medical clearance for medication s tabilization
[2018-06-20 15:52] LABS: COLD AGGLUTININ NEGATIVE (NEGATIVE)
[2018-06-21 05:34] LABS: HEMOGLOBIN 11.5 g/dL (12.0-18.0); MEAN CELL VOLUME 88.8 fl (80.0-94.0); MEAN CORPUSCULAR HEMOGLOBIN 29.1 pg (27.0-31.0); MEAN CORPUSCULAR HGB CONC 32.8 g/dL (33.0-37.0); RBC 3.96 Mil/uL (4.40-5.90); RED CELL DISTRIBUTION WIDTH 16.5 % (11.5-14.5); WHITE BLOOD COUNT 4.4 K/uL (4.8-10.8)
[2018-06-21 05:52] LABS: ALBUMIN 3.4 g/dL (3.5-5.0); ALT/SGPT 27 U/L (21-72); AST/SGOT 20 U/L (17-59); BLOOD UREA NITROGEN 4 mg/dl (9-20); CALCIUM 8.6 mg/dL (8.4-10.2); GFR NON-AFRICAN AMERICAN > 60
[2018-06-21] MEDS: Enoxaparin 40 mg Syringe SC SCH (09:41)
[2018-06-21] MEDS: Pantoprazole 40 mg EC Tab PO SCH (09:44)
[2018-06-21] MEDS: cefTRIAXone 2 GM in Sodium Chloride 0.9% 100 ML IVPB SCH (09:45)
[2018-06-21] MEDS: Azithromycin 500 MG in Sodium Chloride 0.9% 250 ML IVPB SCH (10:56)
--- NOTE | 2018-06-21 14:14 | CP.PCM.DIS ---
Provider - Provider Date of Admission: 06/17/18 05:01 Attending physician: Jhon Cho MD Consults: 06/20/18 12:31 Psychiatry Consult Routine Comment: Consulting Provider: Jessica Mi Consulting Physician: Jessica Mi Reason for Consult: depression, poor appetite Time Spent in preparation of Discharge (in minutes): 35 Diagnosis - Discharge Diagnosis (1) Pneumonia Status: Resolved Hospital Course - Lab Results Lab Results: Micro Results 06/18/18 09:22 Sputum Gram Stain - Final 06/18/18 09:22 Sputum Sputum Culture - Final NORMAL ORAL EVAN 06/17/18 04:39 Blood Blood Culture - Preliminary NO GROWTH AFTER 4 DAYS 06/17/18 05:29 Urine,Clean Catch Urine Culture - Final No Growth (<1,000 CFU/ML) Most Recent Lab Values WBC 4.4 K/uL (4.8-10.8) L 06/21/18 04:45 RBC 3.96 Mil/uL (4.40-5.90) L 06/21/18 04:45 Hgb 11.5 g/dL (12.0-18.0) L 06/21/18 04:45 Hct 35.1 % (35.0-51.0) 06/21/18 04:45 MCV 88.8 fl (80.0-94.0) 06/21/18 04:45 MCH 29.1 pg (27.0-31.0) 06/21/18 04:45 MCHC 32.8 g/dL (33.0-37.0) L 06/21/18 04:45 RDW 16.5 % (11.5-14.5) H 06/21/18 04:45 Plt Count 530 K/uL (130-400) H 06/21/18 04:45 MPV 8.1 fl (7.2-11.7) 06/17/18 04:39 Neut % (Auto) 77.3 % (50.0-75.0) H 06/17/18 04:39 Lymph % (Auto) 10.7 % (20.0-40.0) L 06/17/18 04:39 [place] % (Auto) 11.6 % (0.0-10.0) H 06/17/18 04:39 Eos % (Auto) 0.0 % (0.0-4.0) 06/17/18 04:39 Baso % (Auto) 0.4 % (0.0-2.0) 06/17/18 04:39 Neut # (Auto) 6.6 K/uL (1.8-7.0) 06/17/18 04:39 Lymph # (Auto) 0.9 K/uL (1.0-4.3) L 06/17/18 04:39 [place] # (Auto) 1.0 K/uL (0.0-0.8) H 06/17/18 04:39 Eos # (Auto) 0.0 K/uL (0.0-0.7) 06/17/18 04:39 Baso # (Auto) 0.0 K/uL (0.0-0.2) 06/17/18 04:39 PT 15.2 Seconds (9.8-13.1) H 06/17/18 04:39 INR 1.3 06/17/18 04:39 APTT 34.0 Seconds (25.6-37.1) 06/17/18 04:39 pO2 36 mm/Hg (30-55) 06/17/18 07:00 VBG pH 7.39 (7.32-7.43) 06/17/18 07:00 VBG pCO2 34 mmHg (40-60) L 06/17/18 07:00 VBG HCO3 21.3 mmol/L 06/17/18 07:00 VBG Total CO2 21.6 mmol/L (22-28) L 06/17/18 07:00 VBG O2 Sat (Calc) 74.8 % (40-65) H 06/17/18 07:00 VBG Base Excess -3.6 mmol/L (0.0-2.0) L 06/17/18 07:00 VBG Potassium 3.3 mmol/L (3.6-5.2) L 06/17/18 07:00 Sodium 129.0 mmol/L (132-148) L 06/17/18 07:00 Chloride 99.0 mmol/L (98-107) 06/17/18 07:00 Glucose 117 mg/dL (75-110) H 06/17/18 07:00 Lactate 1.2 mmol/L (0.7-2.1) 06/17/18 07:00 FiO2 28.0 % 06/17/18 07:00 Sodium 136 mmol/l (132-148) 06/21/18 04:45 Potassium 4.0 MMOL/L (3.6-5.0) 06/21/18 04:45 Chloride 104 mmol/L (98-107) 06/21/18 04:45 Carbon Dioxide 24 mmol/L (22-30) 06/21/18 04:45 Anion Gap 12 (10-20) 06/21/18 04:45 BUN 4 mg/dl (9-20) L 06/21/18 04:45 Creatinine 0.4 mg/dl (0.8-1.5) L 06/21/18 04:45 Est GFR ( Amer) > 60 06/21/18 04:45 Est GFR (Non-Af Amer) > 60 06/21/18 04:45 Random Glucose 93 mg/dL (75-110) 06/21/18 04:45 Calcium 8.6 mg/dL (8.4-10.2) 06/21/18 04:45 Phosphorus 2.9 mg/dl (2.5-4.5) 06/19/18 04:25 Magnesium 2.0 MG/DL (1.6-2.3) 06/19/18 04:25 Total Bilirubin < 0.1 mg/dl (0.2-1.3) L 06/21/18 04:45 AST 20 U/L (17-59) 06/21/18 04:45 ALT 27 U/L (21-72) 06/21/18 04:45 Alkaline Phosphatase 61 U/L (38-126) 06/21/18 04:45 Total Protein 6.8 G/DL (6.3-8.2) 06/21/18 04:45 Albumin 3.4 g/dL (3.5-5.0) L 06/21/18 04:45 Globulin 3.4 gm/dL (2.2-3.9) 06/21/18 04:45 Albumin/Globulin Ratio 1.0 (1.0-2.1) 06/21/18 04:45 Venous Blood Potassium 3.3 mmol/L (3.6-5.2) L 06/17/18 07:00 Urine Color Yellow (YELLOW) 06/17/18 05:29 Urine Clarity Cloudy (Clear) 06/17/18 05:29 Urine pH 6.0 (5.0-8.0) 06/17/18 05:29 Ur Specific [place] 1.026 (1.003-1.030) 06/17/18 05:29 Urine Protein 100 mg/dL (NEGATIVE) 06/17/18 05:29 Urine Glucose (UA) Neg mg/dL (Normal) 06/17/18 05:29 Urine Ketones Negative mg/dL (NEGATIVE) 06/17/18 05:29 Urine Blood Moderate (NEGATIVE) 06/17/18 05:29 Urine Nitrate Negative (NEGATIVE) 06/17/18 05:29 Urine Bilirubin Negative (NEGATIVE) 06/17/18 05:29 Urine Urobilinogen 4.0 mg/dL (0.2-1.0) 06/17/18 05:29 Ur Leukocyte Esterase Neg Janelle/uL (Negative) 06/17/18 05:29 Urine RBC (Auto) 19 /hpf (0-3) H 06/17/18 05:29 Urine Microscopic WBC 2 /hpf (0-5) 06/17/18 05:29 Ur Squamous Epith Cells < 1 /hpf (0-5) 06/17/18 05:29 Urine Bacteria Rare (<OCC) 06/17/18 05:29 Cold Agglutinins Negative (NEGATIVE) 06/19/18 14:33 - Hospital Course Hospital Course: Pt is a 68 y/o male presented to [facility] with worsening cough and was found to be septic likley secondary to community acquired pneumonia as chest xray was significant for R. Lobe Infiltrate. He was treated for Ceftriaxnone and Azithromycin for 2 days until his symptoms improved and repeat Cxray showed resolution of infiltrates. During his admission, pt was telling staff he was depressed and psych was consulted. On evaluation, [facility] recommended patient be admitted to psych once medically cleared. Pt was evaluated this morning at the bedside with Dr. Cho. Pt was [facility] on 5 days of Azithromycin. Discharge Exam - Head Exam Head Exam: NORMAL INSPECTION - Eye Exam Eye Exam: Normal appearance - ENT Exam ENT Exam: Mucous Membranes Moist - Respiratory Exam Respiratory Exam: Clear to PA & Lateral. absent: Accessory Muscle Use, Rales, Wheezes - Cardiovascular Exam Cardiovascular Exam: REGULAR RHYTHM, +S1, +S2 - Extremities Exam Extremities exam: normal capillary refill, normal inspection, pedal pulses present - Neurological Exam Neurological exam: Alert, Oriented x3 - Psychiatric Exam Psychiatric exam: Depressed - Skin Skin Exam: Normal Color Discharge Plan - Discharge Medications Prescriptions: Azithromycin [Zithromax Tri-Preet] 500 mg PO DAILY #5 tablet - Follow Up Plan Condition: FAIR Disposition: HOME/ ROUTINE Instructions: Pneumonia, Adult (DC), Sepsis, Adult (DC) Additional Instructions: discharge to gerpsych Referrals: Jhon Cho MD [Staff Provider] -
[2018-06-21 20:01] VITALS: BP 141/88; PULSE 69; RESP 18; TEMP 98; O2SAT 96
[2018-06-21 21:30] LABS: LEGIONELLA AG URINE NEGATIVE (NEGATIVE)
== END 2018-06-21 21:20 | DRG 584 ==
LOC: H.ER 03:47 → H.TEL 05:01
PROVIDERS: ADMIT Internal Medicine; ATTEND Internal Medicine
PROC: 3E02340 Introduction of Influenza Vaccine into Muscle, Percutaneous Approach (ICD-10-PCS; principal; 2018-06-17)
PROC: 3E0234Z Introduction of Serum, Toxoid and Vaccine into Muscle, Percutaneous Approach (ICD-10-PCS; 2018-06-17)
DX: A41.9 Sepsis, unspecified organism (principal); J18.1 Lobar pneumonia, unspecified organism; F33.2 Major depressive disorder, recurrent severe without psychotic features; F03.90 Unspecified dementia, unspecified severity, without behavioral disturbance, psychotic disturbance, mood disturbance, and anxiety; I10 Essential (primary) hypertension; Y95 Nosocomial condition; F17.210 Nicotine dependence, cigarettes, uncomplicated; Z59.0 Homelessness; K29.70 Gastritis, unspecified, without bleeding; Z23 Encounter for immunization

== ENCOUNTER 2018-06-21 21:40 | Inpatient (IN) | payer MEDICAID ==
[2018-06-21] MEDS ORDERED: Bismuth Subsalicylate 262 mg/15 ml Sus (240 ml) PO PRN (21:59)
[2018-06-21] MEDS ORDERED: Alum-Mag Hydrox-Simethicone Susp (30 mL) PO PRN (21:59)
[2018-06-21] MEDS ORDERED: Magnesium Hydroxide Susp 30 ml UD PO PRN (21:59)
--- NOTE | 2018-06-21 22:05 | PCM.BM ---
<Dez Pavon - Last Filed: 06/21/18 22:17> Treatment Plan Problems - Problems identified on initial assessmt Hopelessness/Helplessness Date Initiated: 06/21/18 Time Initiated: 22:03 Assessment reference: NA Status: Active Nutrition More than Body Requirements Date Initiated: 06/21/18 Time Initiated: 22:04 Assessment reference: NA Status: Active Treatment assets and liabiliti Patient Assests: adapts well, cooperative, negotiates basic needs Patient Liabilities: live alone, poor support system, imparied memory - Milieu Protocol Maintain good personal hygiene: daily Encourage regular showers, daily Remind patient to perform daily oral care, daily Assist patient to perform ADL's Conduct patient checks and document Observation sheet: Q15 minutes Maintain personal safety: every shift Educate patient to report safety concerns to staff, every shift Monitor environment for contraband/sharps Medication safety: Monitor for expected outcome, potential side effects: every shift, Assess barriers to learning: daily, every shift, Assess readiness for medication education: daily, every shift <Danyelle Ayoub - Last Filed: 06/22/18 09:21> - Diagnosis (1) Major depressive disorder Status: Acute Interventions: Medication management, Individual and group therapy, Psychoeducation 06/22/18 09:21 <Glenda Amanda - Last Filed: 06/23/18 11:12> Family Contact Family involvement: Estuardo/SO not involved - Outside Agency [facility] Care involvment: Information-sharing Agency contact number: [phone] Discharge/Continuing Care - Education Needs Education Needs: Patient Medication, Patient Diagnosis/Disease Process, Patient Coping Skills, Patient Placement options, Patient Community resources, Patient Activities of Daily Living, Patient Nutrition, Patient Health Practices/Safety, Patient Personal Hygiene/Grooming, Patient Aftercare Safety Plan - Discharge Discharge Criteria: Tolerates medication w/o severe side effects, Free of Suicidal thoughts, Normal sleep pattern, Ability to care for self, Reduction of target symptoms Discharge to:: [facility] - Additional Comments 06/23/18 11:10 Pt was not seen in team meeting. Pt was discharged prior to scheduled team meeting. SW met with pt in the AM and assessment completed. Please refer to [facility] Progress Note dated 06/23/2018 for additional information. - Treatment Team Participation Discussed with Family/SO: No Was Patient/Family/SO present at Treatment Team Meeting: No
[2018-06-22 06:38] LABS: IRON 44 ug/dL (49-181)
[2018-06-22 06:49] LABS: % IRON SATURATION 14 % (20-55); TOTAL IRON BINDING CAPACITY 315 ug/dL (250-450)
[2018-06-22 06:54] LABS: T4 8.35 ug/dl (5.5-11.0)
[2018-06-22 07:11] LABS: FERRITIN 53.6 ng/Ml (17.9-464)
--- NOTE | 2018-06-22 08:39 | PCM.PSYCH ---
Initial Psychiatric Evaluation - Initial Psychiatric Evaluation Type of Admission: Voluntary Legal Status: Capacity Chief Complaint (in patient's own words): Depression Patient's Reaction to Hospitalization: HPI: 68 yo male w/ h/o MDD, transferred from medical unit, where he was admitted for community acquired pneumonia, treated with Azithromycin. Patient reported depressed mood, poor sleep, low energy, poor appetite. He denied suicidal ideation/plan/intent. At this time, patient reports that he wants to be discharged from the hospital and submitted a 48 hr letter. No AH/VH/paranoia/delusions/SI/HI. A + O x 4. PPHx: H/o 3 previous psychiatric admissions; reports that he has a history of suicide attempt in 2013 by jumping in front of a car. Currently being treated w/ Remeron 15 mg PO HS. No outpatient psychiatric follow-up for 1 year. PMHx: GERD, current tx for PNA ALL: NKDA SHx: Lives in a correction, from [place], denies drugs/etoh, smokes 1 carton of cig/ month, declined smoking cessation Current Medications: Active Medications Generic Name Dose Route Start Last Admin Trade Name Freq PRN Reason Stop Dose Admin Acetaminophen 650 mg 06/21/18 21:59 Tylenol 325mg Tab PO Q4 PRN Pain, moderate (4-7) Al Hydrox/Mg Hydrox/Simethicone 30 ml 06/21/18 21:59 Maalox Plus 30 Ml PO Q4 PRN Dyspepsia Azithromycin 500 mg 06/22/18 09:00 Zithromax PO DAILY [facility] Protocol Bismuth Subsalicylate 524 mg 06/21/18 21:59 Pepto-Bismol PO Q4 PRN Diarrhea Cyproheptadine HCl 4 mg 06/22/18 09:00 Periactin PO BID [facility] Donepezil HCl 10 mg 06/22/18 09:00 Aricept PO DAILY [facility] Gabapentin 100 mg 06/22/18 09:00 Neurontin PO BID [facility] Lorazepam 0.5 mg 06/21/18 21:59 Ativan PO 07/05/18 22:00 HS PRN Insomnia Lorazepam 0.5 mg 06/21/18 21:59 Ativan PO 07/05/18 22:00 Q6 PRN Anixety/Agitation Magnesium Hydroxide 30 ml 06/21/18 21:59 Milk Of Magnesia PO HS PRN Constipation Mirtazapine 15 mg 06/22/18 22:00 Remeron PO HS [facility] Pantoprazole Sodium 40 mg 06/22/18 09:00 Protonix Ec Tab PO DAILY [facility] Past Psychiatric History - Past Psychiatric History Previous Treatment History: Inpatient Pertinent Medical Hx (Current Medical&Sleep Prob, Allergies): Allergies Allergy/AdvReac Type Severity Reaction Status Date / Time No Known Allergies Allergy Verified 03/15/18 14:03 Omeprazole 40 mg PO DAILY #30 capsule. 03/15/18 Cyproheptadine HCl 4 mg PO BID 06/17/18 Donepezil HCl [Aricept] 10 mg PO DAILY 06/17/18 Gabapentin [Neurontin] 100 mg PO BID 06/17/18 Azithromycin [Zithromax Tri-Preet] 500 mg PO DAILY #5 tablet 06/21/18 Mirtazapine [Remeron] 15 mg PO HS tab 06/21/18 Review of Systems - Psychiatric Psychiatric: As Per HPI, Abnormal Sleep Pattern, Anhedonia, Anxiety, Change in Appetite, Depression, Difficulty Concentrating, Irritability Mental Status Examination - Personal Presentation Personal Presentation: Looks stated age - Affect Affect: Constricted - Motor Activity Motor Activity: Calm - Reliability in Providing Information Reliability in Providing Information: Fair - Speech Speech: Organized, Coherent - Mood Mood: Depressed - Formal Thought Process Formal Thought Process: No Impairment - Hallucinations/Delusions Additional comments: NO AH/VH/paranoia/delusions - Obsessions/Compulsions Obsessions: No Compulsions: No - Cognitive Functions Orientation: Person, Place, Situation, Time Sensorium: Alert Judgement: Intact, as evidence by: Good judgement Memory: Recent intact, as evidence by: Ability to recall events of the day - Risk Risk: Diminished functioning - Strength & Assets Inventory Strength & Assets Inventory: Cooperative - Limitations Limitations: Other (Homelessness, Poverty) DSM 5 DX - DSM 5 DSM 5 Diagnosis: Major Depressive Disorder, recurrent - Recommended/Plan of Treatment Treatment Recommendations and Plan of Treatment: Major Depressive Disorder -Admit to psychiatry unit -Pt submitted a 48 hr letter, will observe clinically and likely discharge alonso orrow as he does not meet criteria for involuntary commitment -Medicine consult -Individual and group therapy -Increase Remeron to 30 mg PO HS Discharge Plan and Discharge Criteria: Discharge when patient is psychiatrically stable - Smoking Cessation Smoking Cessation Initiated: No Reason for not providing: Patient declined
[2018-06-22] MEDS: Pantoprazole 40 mg EC Tab PO SCH (08:53)
--- NOTE | 2018-06-22 11:38 | CP.PCM.HP ---
<Aakash Modi - Last Filed: 06/22/18 15:55> History of Present Illness - History of Present Illness History of Present Illness: 63 yo M, pmhx of gastirits, and HTN, CAD, recently discharged from [facility] In Patient for treatment of Pneumonia. Pt was evaluated by psychiatry on floors and diagnosed Major Depression and recommended to be transferred to psych when medically cleared. He was treated with IV antibiotics until improvement of his symptoms and medically cleared for transfer to psych floors. Will continue Azithromycin for 5 days. Present on Admission - Present on Admission Any Indicators Present on Admission: No Past Patient History - Past Medical History & Family History Past Medical History?: No - Past Social History Smoking Status: Light Smoker < 10 Cigarettes Daily - CARDIAC Hx Cardiac Disorders: Yes Hx Hypertension: Yes - PULMONARY Hx Respiratory Disorders: No Hx Pneumonia: Yes - NEUROLOGICAL Hx Neurological Disorder: Yes Hx Dementia: Yes - HEENT Hx HEENT Problems: No - RENAL Hx Chronic Kidney Disease: No - ENDOCRINE/METABOLIC Hx Endocrine Disorders: No - HEMATOLOGICAL/ONCOLOGICAL Hx Blood Disorders: No Hx AIDS: No Hx Human Immunodeficiency Virus (HIV): No - INTEGUMENTARY Hx Dermatological Problems: No - MUSCULOSKELETAL/RHEUMATOLOGICAL Hx Musculoskeletal Disorders: No Hx Falls: Yes - GASTROINTESTINAL Hx Gastrointestinal Disorders: Yes Hx Gastritis: Yes - GENITOURINARY/GYNECOLOGICAL Hx Genitourinary Disorders: No - PSYCHIATRIC Hx Depression: Yes Hx Substance Use: No - SURGICAL HISTORY Hx Surgeries: No - ANESTHESIA Hx Anesthesia: No Hx Anesthesia Reactions: No Hx Malignant Hyperthermia: No Meds Home Medications: Home Medication List Medication Instructions Recorded Confirmed Type RX: Cyproheptadine HCl 4 mg PO BID 30 Days #60 tablet 06/22/18 Rx RX: Donepezil HCl [Aricept] 10 mg PO DAILY 30 Days #30 tablet 06/22/18 Rx RX: Gabapentin [Neurontin] 100 mg PO BID 30 Days #60 cap 06/22/18 Rx RX: Mirtazapine [Remeron] 30 mg PO HS #30 tab 06/22/18 Rx RX: Omeprazole 40 mg PO DAILY 30 Days #30 06/22/18 Rx capsule Allergies/Adverse Reactions: Allergies Allergy/AdvReac Type Severity Reaction Status Date / Time No Known Allergies Allergy Verified 03/15/18 14:03 Physical Exam - Constitutional Appears: No Acute Distress - Head Exam Head Exam: NORMAL INSPECTION - Eye Exam Eye Exam: Normal appearance - ENT Exam ENT Exam: Mucous Membranes Moist - Respiratory Exam Respiratory Exam: Clear to Auscultation Bilateral. absent: Rales, Wheezes - Cardiovascular Exam Cardiovascular Exam: REGULAR RHYTHM, +S1, +S2. absent: Systolic Murmur - GI/Abdominal Exam GI & Abdominal Exam: Normal Bowel Sounds - Extremities Exam Extremities exam: Positive for: normal inspection - Neurological Exam Neurological exam: Alert, Oriented x3 - Psychiatric Exam Psychiatric exam: Normal Affect - Skin Skin Exam: Normal Color Results - Vital Signs Recent Vital Signs: Last Vital Signs Temp 98.1 F 06/22/18 05:54 Pulse 73 06/22/18 05:54 Resp 18 06/22/18 05:54 BP 136/76 06/22/18 05:54 Pulse Ox - Labs Labs: Laboratory Results - last 24 hr 06/22/18 06/22/18 06/22/18 06:10 06:10 06:10 Iron 44 L TIBC 315 % Saturation 14 L Ferritin 53.6 Triglycerides 95 Cholesterol 107 LDL Cholesterol Direct 78 HDL Cholesterol 26 L Vitamin B12 375 Free T4 1.26 Thyroxine (T4) 8.35 TSH 3rd Generation 0.86 Assessment & Plan - Assessment and Plan (Free Text) Assessment: 63 yo M, pmhx of gastirits and recently discharged from [facility] In Patient for treatment of Pneumonia. Pt was evaluated by psychiatry on floors and diagnosed Major Depression and recommended to be transferred to psych when medically cleared. He was treated with IV antibiotics until improvement of his symptoms and medically cleared for transfer to psych floors. Will continue Azithromycin for 5 days. Pneumonia -Improving clinically -Afebrile, no leukocytosis -C/W Azithromycin for total 5 days Major Depression -Management as per Mya team -Currently on Aricept, Remeron Gastritis/GERD -Asymptomatic -C/W Al Hydroxide and Protonix daily Discussed Case with Dr. Cho <Jhno Cho - Last Filed: 06/25/18 17:38> Results - Vital Signs Recent Vital Signs: Last Vital Signs Temp 97.7 F 06/23/18 05:46 Pulse 79 06/23/18 05:46 Resp 19 06/23/18 05:46 BP 152/84 H 06/23/18 05:46 Pulse Ox Assessment & Plan - Assessment and Plan (Free Text) Assessment: Patient was personally seen and examined by me in rounds with residents. Available labs and diagnostic data reviewed. Case, Patient's condition and management plan discussed with residents in rounds. Agree with resident's progress note. Plan: As ordered.
[2018-06-22 13:12] LABS: FOLATE 12.4 ng/mL
[2018-06-23 05:46] VITALS: BP 152/84; PULSE 79; RESP 19; TEMP 97.7
[2018-06-23] MEDS: Pantoprazole 40 mg EC Tab PO SCH (08:39)
--- NOTE | 2018-06-23 09:26 | PCM.PYCHDC ---
Mental Status Examination - Mental Status Examination Orientation: Person, Place, Situation, Time Memory: Impaired (Mild memory deficits; patient able to function and care for self) Mood: Neutral Affect: Broad Speech: Appropriate Attention: WNL Concentration: WNL Association: WNL Fund of Knowledge: WNL Formal Thought Process: No Impairment Description of patient's judgement and insight: Fair I/J Psychotic Thoughts and Behaviors: Denies AH/VH/paranoia/delusions Suicidal Ideation: No Current Homicidal Ideation?: No Discharge Summary - Discharge Note Reason for Hospitalization: HPI: 68 yo male w/ h/o MDD, transferred from medical unit, where he was admitted for community acquired pneumonia, treated with Azithromycin. Patient reported depressed mood, poor sleep, low energy, poor appetite. He denied suicidal ideation/plan/intent. At this time, patient reports that he wants to be discharged from the hospital and submitted a 48 hr letter. No AH/VH/paranoia/delusions/SI/HI. A + O x 4. PPHx: H/o 3 previous psychiatric admissions; reports that he has a history of suicide attempt in 2012 by jumping in front of a car. Currently being treated w/ Remeron 15 mg PO HS. No outpatient psychiatric follow-up for 1 year. PMHx: GERD, current tx for PNA ALL: NKDA SHx: Lives in a halfway, from [place], denies drugs/etoh, smokes 1 carton of cig/ month, declined smoking cessation Laboratory Data: Abnormal Lab Results 06/22/18 06/22/18 06:10 06:10 Hemoglobin A1c 6.0 Folate 12.4 Consultations:: List each consultation separately and include: 1. Reason for request. 2. Findings. 3. Follow-up Consultations: Medicine Summary of Hospital Course include:: 1. Description of specific treatment plan utilized for patients during their course of treatmen. 2. Summarize the time- course for resolution of acute symptoms and/or regressed behaviors. 3. Describe issues identified and worked on during hospitalization. 4. Describe medication utilized. 5. Describe medical problems identified and treated. 6. Reassessment of suicide risk Summary of Hospital Course: Patient was admitted to the psychiatry unit. Individual and group therapy were provided. Remeron was increased to 30 mg PO HS. He submitted a 48 hr letter requesting to be discharged. He denies severe depression/anxiety; denies AH/VH/SI/HI. He is psychiatrically stable for discharge at this time. - Diagnosis (1) Major depressive disorder Current Visit: Yes Status: Chronic - Final Diagnosis (DSM 5) Condition upon Discharge: STABLE DSM 5: Major Depressive Disorder Disposition: HOME/ ROUTINE Follow-up Treatment Plan: Major Depressive Disorder -Continue Remeron to 30 mg PO HS -Continue Aricept 10 mg PO HS Prescriptions/Medication Reconciliation: Cyproheptadine HCl 4 mg PO BID 30 Days #60 tablet Donepezil HCl [Aricept] 10 mg PO DAILY 30 Days #30 tablet Gabapentin [Neurontin] 100 mg PO BID 30 Days #60 cap Mirtazapine [Remeron] 30 mg PO HS #30 tab Omeprazole 40 mg PO DAILY 30 Days #30 capsule.dr - Smoking Cessation Smoking Cessation Medication prescribed: No Reason for not providing: Patient declined - Antipsychotic Medications Pt discharged on 2 or more routine antipsychotic medications: No
--- NOTE | 2018-06-23 11:41 | PN ---
DATE: 06/23/2018 SUBJECTIVE: The patient seen and examined. Interim events noted. Psychiatry evaluation noted and appreciated. The patient remains in geropsych unit. The patient has signed 48-hour notice and is going to be discharged today. The patient feels okay. No cough, chest pain, or shortness of breath. PHYSICAL EXAMINATION: GENERAL: The patient is in no acute distress. VITAL SIGNS: Stable. HEART: S1, S2 normal, regular. LUNGS: Good bilateral air exchange. ABDOMEN: Soft, nontender. EXTREMITIES: Some edema. No calf swelling. No tenderness. No acute ischemia. PURSE MAKER: Essentially unchanged. ASSESSMENT AND PLAN: Overall, the patient is medically stable. The patient is for discharge today. Case and plan discussed with the patient. The patient will be followed up by their primary care physician, Dr. Jarquin within a week. Plan as ordered. Jhon Cho MD
== END 2018-06-23 10:30 | disposition home or self-care (01) | DRG 430 ==
LOC: H.STEP 21:43
PROVIDERS: ADMIT Psychiatry & Neurology Psychiatry; ATTEND Psychiatry & Neurology Psychiatry
PROC: GZHZZZZ Group Psychotherapy (ICD-10-PCS; principal; 2018-06-21)
PROC: GZ58ZZZ Individual Psychotherapy, Cognitive-Behavioral (ICD-10-PCS; 2018-06-21)
DX: F33.9 Major depressive disorder, recurrent, unspecified (principal); J18.9 Pneumonia, unspecified organism; I25.10 Atherosclerotic heart disease of native coronary artery without angina pectoris; I10 Essential (primary) hypertension; K21.9 Gastro-esophageal reflux disease without esophagitis; K29.70 Gastritis, unspecified, without bleeding; F17.210 Nicotine dependence, cigarettes, uncomplicated; Z87.01 Personal history of pneumonia (recurrent); Z91.5 Personal history of self-harm

== ENCOUNTER 2018-07-20 23:25 | Emergency (ER) | payer SELFPAY ==
[2018-07-20 23:29] VITALS: O2SAT 96
--- NOTE | 2018-07-21 03:52 | ED PDOC ---
HPI: General Adult Time Seen by Provider: 07/21/18 01:48 Chief Complaint (Nursing): Lower Extremity Problem/Injury Chief Complaint (Provider): Lower Extremity Problem/Injury History Per: Patient History/Exam Limitations: no limitations Onset/Duration Of Symptoms: Sudden Onset Current Symptoms Are (Timing): Still Present Additional Complaint(s): 68 year old male, well-known to ED for multiple visits relating to alcohol abuse, presents with general weakness of the lower extremities. Patient called 911 while [facility] at [facility]. He denies any fever, chills, cough, shortness of breath, nausea, vomiting, abdominal pain, or diarrhea. PCP: Dr. Florence Barnett Past Medical History Reviewed: Historical Data, Nursing Documentation, Vital Signs Vital Signs: Last Vital Signs Temp 98.8 F 07/20/18 23:27 Pulse 93 H 07/20/18 23:27 Resp 16 07/20/18 23:27 BP 118/72 07/20/18 23:27 Pulse Ox 96 07/20/18 23:27 - Medical History PMH: Dementia, Depression, Gastritis, HTN, Pneumonia Denies: Anxiety, Bipolar Disorder, HIV, Paranoia, Post Traumatic Stress Disorder, Chronic Kidney Disease, Schizophrenia - Surgical History Surgical History: Denies: Appendectomy, CABG, Carotid Endarterectomy, Cholecystectomy, Coronary Stent, Tonsillectomy - Family History Family History: States: Unknown Family Hx - Immunization History Hx Tetanus Toxoid Vaccination: Yes Hx Influenza Vaccination: No Hx Pneumococcal Vaccination: No - Home Medications Home Medications: Ambulatory Orders Medication Instructions Recorded Cyproheptadine HCl 4 mg PO BID 30 Days #60 tablet 06/22/18 Donepezil HCl [Aricept] 10 mg PO DAILY 30 Days #30 tablet 06/22/18 Gabapentin [Neurontin] 100 mg PO BID 30 Days #60 cap 06/22/18 Mirtazapine [Remeron] 30 mg PO HS #30 tab 06/22/18 Omeprazole 40 mg PO DAILY 30 Days #30 06/22/18 capsule. - Allergies Allergies/Adverse Reactions: Allergies Allergy/AdvReac Type Severity Reaction Status Date / Time No Known Allergies Allergy Verified 07/20/18 23:27 Review of Systems ROS Statement: Except As Marked, All Systems Reviewed And Found Negative Constitutional: Negative for: Fever, Chills Respiratory: Negative for: Cough, Shortness of Breath Gastrointestinal: Negative for: Nausea, Vomiting, Abdominal Pain, Diarrhea Neurological: Positive for: Weakness (lower extremities) Physical Exam - Reviewed Nursing Documentation Reviewed: Yes Vital Signs Reviewed: Yes - Physical Exam Appears: Positive for: Non-toxic, No Acute Distress Head Exam: Positive for: ATRAUMATIC, NORMAL INSPECTION, NORMOCEPHALIC Skin: Positive for: Normal Color Eye Exam: Positive for: Normal appearance ENT: Positive for: Normal ENT Inspection Neck: Positive for: Normal Cardiovascular/Chest: Positive for: Regular Rate, Rhythm Respiratory: Positive for: Normal Breath Sounds. Negative for: Respiratory Distress Gastrointestinal/Abdominal: Positive for: Normal Exam, Soft. Negative for: Tenderness Extremity: Positive for: Normal ROM (upper/lower). Negative for: Pedal Edema, Calf Tenderness Neurologic/Psych: Positive for: Alert, Oriented. Negative for: Motor/Sensory Deficits - Laboratory Results Result Diagrams: 07/21/18 04:47 07/21/18 04:47 - ECG O2 Sat by Pulse Oximetry: 96 (RA) Pulse Ox Interpretation: Normal Medical Decision Making Medical Decision Making: Initial Impression: 68 year old male with generalized weakness of lower extremities. Initial Plan: * Labs * Accucheck Time: 0452 --Accucheck: 188 mg/dL. Time: 624 --Labs reviewed: no significant clinical abnormality. Patient is observed ambulating in ED with steady gait. Upon provider reevaluation, patient is medically stable and requires no further treatment in the ED at this time. Co unseling was provided and all questions were answered regarding diagnosis. There is agreement to discharge plan. Return if symptoms persist or worsen. Clinical Impression: Malingerer; Weakness Scribe Attestation: Documented by Mai Nichole, acting as a scribe for Walter Goff MD. Provider Scribe Attestation: All medical record entries made by the Scribe were at my direction and personally dictated by me. I have reviewed the chart and agree that the record accurately reflects my personal performance of the history, physical exam, medical decision making, and the department course for this patient. I have also personally directed, reviewed, and agree with the discharge instructions and disposition. Disposition - Clinical Impression Clinical Impression: Weakness, Malingerer - Patient ED Disposition Is Patient to be Admitted: No Counseled Patient/Family Regarding: Studies Performed, Diagnosis - Disposition Disposition: Routine/Home Disposition Time: 06:25 Condition: STABLE Instructions: Weakness (ED) Forms: [employer] (Uzbek) Print Language: SRI LANKAN
[2018-07-21 05:25] LABS: BASO # 0.1 K/uL (0.0-0.2); BASO % 0.9 % (0.0-2.0); EOS # 0.5 K/uL (0.0-0.7); EOS % 8.1 % (0.0-4.0); HEMOGLOBIN 11.8 g/dL (12.0-18.0); LYMPH # 2.4 K/uL (1.0-4.3); LYMPH % 37.5 % (20.0-40.0); MEAN CELL VOLUME 90.2 fl (80.0-94.0); MEAN CORPUSCULAR HEMOGLOBIN 29.6 pg (27.0-31.0); MEAN CORPUSCULAR HGB CONC 32.8 g/dL (33.0-37.0); MEAN PLATELET VOLUME 7.9 fl (7.2-11.7); MONO # 0.6 K/uL (0.0-0.8); MONO % 9.9 % (0.0-10.0); NEUT # 2.8 K/uL (1.8-7.0); NEUT % 43.6 % (50.0-75.0); NRBC % 0.1 % (0.0-0.0); RED CELL DISTRIBUTION WIDTH 16.8 % (11.5-14.5); WHITE BLOOD COUNT 6.5 K/uL (4.8-10.8)
[2018-07-21 05:37] LABS: ALB/GLOB RATIO 1.3 (1.0-2.1); ALT/SGPT 19 U/L (21-72); AST/SGOT 18 U/L (17-59); BLOOD UREA NITROGEN 6 mg/dl (9-20); CALCIUM 8.9 mg/dL (8.4-10.2); GFR NON-AFRICAN AMERICAN > 60
[2018-07-21 07:27] VITALS: BP 132/74; PULSE 84; RESP 18; TEMP 98.2
== END 2018-07-21 06:26 | disposition home or self-care (01) ==
LOC: H.ER 23:25
DX: Z76.5 Malingerer [conscious simulation] (principal); M62.81 Muscle weakness (generalized); F03.90 Unspecified dementia, unspecified severity, without behavioral disturbance, psychotic disturbance, mood disturbance, and anxiety; F32.9 Major depressive disorder, single episode, unspecified; I10 Essential (primary) hypertension
CPT/HCPCS: 80053; 82550; 82948; 83735; 85025; 99283; G0480

== ENCOUNTER 2018-11-07 05:29 | Inpatient (IN) | payer MEDICAID ==
--- NOTE | 2018-11-07 06:09 | ED PDOC ---
HPI: Psych/Substance Abuse Time Seen by Provider: 11/07/18 05:52 Chief Complaint (Nursing): Psychiatric Evaluation Chief Complaint (Provider): psychiatric evaluation History Per: Patient History/Exam Limitations: no limitations Onset/Duration Of Symptoms: Persistent Current Symptoms Are (Timing): Still Present Severity: Moderate Additional Complaint(s): 68 year old homeless male with a past medical history of depression presents to the ED for a psychiatric evaluation. Patient states that he has been experiencing depression and auditory hallucinations that tell him to harm himself. Patient states that he has no interest in his daily activities. Patient has had previous admissions for depression. PMD: none provided Past Medical History Reviewed: Historical Data, Nursing Documentation, Vital Signs Vital Signs: Last Vital Signs Temp 99.1 F 11/07/18 05:46 Pulse 95 H 11/07/18 05:46 Resp 20 11/07/18 05:46 BP 162/90 H 11/07/18 05:46 Pulse Ox 100 11/07/18 05:46 ADRIAN Report Viewed: Yes - Medical History PMH: Dementia, Depression, Gastritis, HTN, Pneumonia Denies: Anxiety, Bipolar Disorder, HIV, Paranoia, Post Traumatic Stress Disorder, Chronic Kidney Disease, Schizophrenia - Surgical History Surgical History: Denies: Appendectomy, CABG, Carotid Endarterectomy, Cholecystectomy, Coronary Stent, Tonsillectomy - Family History Family History: States: No Known Family Hx - Living Arrangements Living Arrangements: Other (homeless) - Social History Current smoker - smoking cessation education provided: No Alcohol: None Drugs: Denies - Immunization History Hx Tetanus Toxoid Vaccination: Yes Hx Influenza Vaccination: No Hx Pneumococcal Vaccination: No - Home Medications Home Medications: Ambulatory Orders Medication Instructions Recorded Cyproheptadine HCl 4 mg PO BID 30 Days #60 tablet 06/22/18 Donepezil HCl [Aricept] 10 mg PO DAILY 30 Days #30 tablet 06/22/18 Gabapentin [Neurontin] 100 mg PO BID 30 Days #60 cap 06/22/18 Mirtazapine [Remeron] 30 mg PO HS #30 tab 06/22/18 Omeprazole 40 mg PO DAILY 30 Days #30 06/22/18 capsule.dr - Allergies Allergies/Adverse Reactions: Allergies Allergy/AdvReac Type Severity Reaction Status Date / Time No Known Allergies Allergy Verified 07/20/18 23:27 Review of Systems ROS Statement: Except As Marked, All Systems Reviewed And Found Negative Psych: Positive for: Depression, Other (auditory hallucinations) Physical Exam - Reviewed Nursing Documentation Reviewed: Yes Vital Signs Reviewed: Yes - Physical Exam Appears: Positive for: Well, Non-toxic, No Acute Distress Head Exam: Positive for: ATRAUMATIC, NORMOCEPHALIC Skin: Positive for: Normal Color, Warm, Dry Eye Exam: Positive for: Normal appearance Cardiovascular/Chest: Positive for: Regular Rate, Rhythm Respiratory: Positive for: Normal Breath Sounds Neurological/Psych: Positive for: Awake, Alert, Oriented (3x), Mood/Affect (flat affect) - Laboratory Results Result Diagrams: 11/07/18 06:37 - ECG O2 Sat by Pulse Oximetry: 100 (RA) Pulse Ox Interpretation: Normal Medical Decision Making Medical Decision Makin:52 Initial impression: 68 year old male with acute depression Initial plan: * 1:1 observation * crisis evaluation * EKG * alcohol serum * CMP * drug screen urinary * CBC with differential * accucheck * urinalysis * revaluation 7:00 Patient signed out by me to Arturo Montanez III, DO pending crisis evaluation, labs, and reevaluation. ScribeAttestation: Documented byIngris Patel, acting as a scribe for Walter Goff MD. Provider ScribeAttestation: All medical record entries made by the Scribe were at my direction and personally dictated by me. I have reviewed the chart and agree that the record accurately reflects my personal performance of the history, physical exam, medical decision making, and the department course for this patient. I have also personally directed, reviewed, and agree with the discharge instructions and disposition. Disposition - Clinical Impression Clinical Impression: Depression - Disposition Disposition: Transfer of Care Disposition Time: 07:00 Condition: FAIR Forms: [employer] (Ukrainian)
[2018-11-07] MEDS ORDERED: Pantoprazole 40 mg EC Tab PO STA (06:43)
[2018-11-07 06:50] LABS: BASO # 0.1 K/uL (0.0-0.2); BASO % 0.9 % (0.0-2.0); EOS # 0.1 K/uL (0.0-0.7); EOS % 1.1 % (0.0-4.0); HEMOGLOBIN 10.8 g/dL (12.0-18.0); LYMPH # 1.6 K/uL (1.0-4.3); LYMPH % 16.6 % (20.0-40.0); MEAN CELL VOLUME 87.2 fl (80.0-94.0); MEAN CORPUSCULAR HEMOGLOBIN 29.2 pg (27.0-31.0); MEAN CORPUSCULAR HGB CONC 33.5 g/dL (33.0-37.0); MEAN PLATELET VOLUME 7.5 fl (7.2-11.7); MONO # 1.2 K/uL (0.0-0.8); NEUT # 6.8 K/uL (1.8-7.0); NEUT % 69.4 % (50.0-75.0); NRBC % 0.1 % (0.0-0.0); RBC 3.69 Mil/uL (4.40-5.90); WHITE BLOOD COUNT 9.9 K/uL (4.8-10.8)
[2018-11-07 06:57] LABS: URINE BILIRUBIN NEGATIVE (NEGATIVE); URINE BLOOD SMALL (NEGATIVE); URINE CLARITY SLIGHTY-CLOUDY (Clear); URINE COLOR YELLOW (YELLOW); URINE GLUCOSE (UA) NEG (NEGATIVE); URINE LEUKOCYTE ESTERASE NEG Leu/uL (Negative); URINE PROTEIN NEGATIVE (NEGATIVE); URINE UROBILINOGEN 0.2-1.0 mg/dL (0.2-1.0)
[2018-11-07 07:01] LABS: ALB/GLOB RATIO 1.3 (1.0-2.1); ALBUMIN 4.2 g/dL (3.5-5.0); ALT/SGPT 29 U/L (21-72); AST/SGOT 27 U/L (17-59); BLOOD UREA NITROGEN 4 mg/dl (9-20); CALCIUM 8.2 mg/dL (8.4-10.2); GFR NON-AFRICAN AMERICAN > 60
[2018-11-07] MEDS ORDERED: Pantoprazole 40 mg EC Tab PO ONE (07:09)
--- NOTE | 2018-11-07 07:18 | ED PDOC ---
- Laboratory Results Result Diagrams: 11/07/18 06:37 11/07/18 11:31 Lab Results: Total Bilirubin 0.6 mg/dl (0.2-1.3) 11/07/18 06:37 AST 27 U/L (17-59) 11/07/18 06:37 ALT 29 U/L (21-72) 11/07/18 06:37 Alkaline Phosphatase 76 U/L (38-126) 11/07/18 06:37 Total Protein 7.4 G/DL (6.3-8.2) 11/07/18 06:37 Albumin 4.2 g/dL (3.5-5.0) 11/07/18 06:37 Globulin 3.3 gm/dL (2.2-3.9) 11/07/18 06:37 Albumin/Globulin Ratio 1.3 (1.0-2.1) 11/07/18 06:37 Urine Color Yellow (YELLOW) 11/07/18 06:38 Urine Clarity Slighty-cloudy (Clear) 11/07/18 06:38 Urine pH 7.0 (5.0-8.0) 11/07/18 06:38 Ur Specific [place] 1.009 (1.003-1.030) 11/07/18 06:38 Urine Protein Negative mg/dL (NEGATIVE) 11/07/18 06:38 Urine Glucose (UA) Neg mg/dL (NEGATIVE) 11/07/18 06:38 Urine Ketones Trace mg/dL (NEGATIVE) 11/07/18 06:38 Urine Blood Small (NEGATIVE) 11/07/18 06:38 Urine Nitrate Negative (NEGATIVE) 11/07/18 06:38 Urine Bilirubin Negative (NEGATIVE) 11/07/18 06:38 Urine Urobilinogen 0.2-1.0 mg/dL (0.2-1.0) 11/07/18 06:38 Ur Leukocyte Esterase Neg Janelle/uL (Negative) 11/07/18 06:38 Urine RBC (Auto) 4 /hpf (0-3) H 11/07/18 06:38 Urine Microscopic WBC < 1 /hpf (0-5) 11/07/18 06:38 - ECG O2 Sat by Pulse Oximetry: 100 (RA) Pulse Ox Interpretation: Normal Medical Decision Making Medical Decision Makin:00 Dr. Montanez did not resume patient care as recognized. Patient care endorsed to Dr. Henson from Dr. Goff pending workup and crisis evaluation. 08:53 Patient continues to be on 1:1 observation in ED and he is resting comfortably. His blood work demonstrates he has slight anemia and sodium of 127, similar to his previous report. Blood work will be repeated after an half-hour when 1 L of normal saline is complete. 12:38 Patients repeat blood work demonstrated sodium of 127 therefore patient cannot be cleared for geriatric psychiatry so patient will admitted to medical services. crisis team aware of plan, and patient will be monitored via 1:1 observation on medical floor. 12:30 Dr. Flores works with Dr. Paulino and ERICKSON Werner who accepted the patient for hyponatremia and depression. Scribe Attestation: Documented by Kavin Ramírez, acting as a scribe for Ml Henson MD. Provider Scribe Attestation: All medical record entries made by the Scribe were at my direction and personally dictated by me. I have reviewed the chart and agree that the record accurately reflects my personal performance of the history, physical exam, medical decision making, and the department course for this patient. I have also personally directed, reviewed, and agree with the discharge instructions and disposition. Disposition Counseled Patient/Family Regarding: Studies Performed, Diagnosis - Clinical Impression Clinical Impression: Depression - POA Present On Arrival: None - Disposition Disposition: Admitted as In-Patient Disposition Time: 12:30 Condition: FAIR
[2018-11-07 07:22] LABS: BARBITURATES, UR NEGATIVE (NEGATIVE); BENZODIAZEPINES, UR NEGATIVE (NEGATIVE); OPIATES, UR NEGATIVE (NEGATIVE); PHENCYCLIDINE, UR NEGATIVE (NEGATIVE)
[2018-11-07] MEDS ORDERED: Sodium Chloride 0.9% 1,000 ML IV STA (08:53)
[2018-11-07 11:07] LABS: LIPASE 37 U/L (23-300)
[2018-11-07 11:57] LABS: ALB/GLOB RATIO 1.1 (1.0-2.1); ALBUMIN 3.6 g/dL (3.5-5.0); ALT/SGPT 27 U/L (21-72); AST/SGOT 41 U/L (17-59); BLOOD UREA NITROGEN 4 mg/dl (9-20); CALCIUM 7.5 mg/dL (8.4-10.2); GFR NON-AFRICAN AMERICAN > 60
[2018-11-07] MEDS: Sodium Chloride 0.9% 1,000 ML IV SCH (16:45)
--- NOTE | 2018-11-07 18:46 | CARD ---
APPROVED REPORT Date of service: 11/07/2018 EKG Measurement Heart [id number] <Conclusion> Normal sinus rhythm Left axis deviation Anteroseptal infarct, age undetermined Abnormal ECG
[2018-11-08 05:53] LABS: BLOOD UREA NITROGEN 6 mg/dl (9-20); CALCIUM 7.8 mg/dL (8.4-10.2); GFR NON-AFRICAN AMERICAN > 60
[2018-11-08] MEDS: Sodium Chloride 0.9% 1,000 ML IV SCH ×2 (06:52→10:29)
[2018-11-08] MEDS: Pantoprazole 40 mg EC Tab PO SCH (09:12)
--- NOTE | 2018-11-08 10:07 | CP.PCM.CON ---
History of Present Illness - History of Present Illness History of Present Illness: pt is a 68 year old male with a pastpsychiatric history of depression and alcohol use, currently non compliant with medications or follow up , presents to the ED with suicidal ideation and auditory hallucinations,. Patient states that he has been increasingly depressed due to being homeless and having financial difficulties, reported poor sleep, anhedonia, low energy, feeling hopeless having derogatory auditory hallucinations, he relapsed on alcohol two days ago and started having passive suicidal ideation, he came to ER seeking help pt currently on medical floor for management of hypokalemia Review of Systems - Psychiatric Additional comments: pt5 seen in bed, partial eye contact speech soft and slow depressed mood and affect, thought form coherent reported non command auditory hallucinations, passive suicidal ideation, alert awake ox3 partial insight and fair judgment Past Patient History - Past Medical History & Family History Past Medical History?: No - Past Social History Smoking Status: Never Smoked - CARDIAC Hx Cardiac Disorders: No Hx Hypertension: No - PULMONARY Hx Respiratory Disorders: No Hx Tuberculosis: No - NEUROLOGICAL HX Cerebrovascular Accident: No Hx Seizures: No - HEENT Hx HEENT Problems: No Other/Comment: Wears bifocal glasses. - RENAL Hx Chronic Kidney Disease: No - ENDOCRINE/METABOLIC Hx Endocrine Disorders: No - HEMATOLOGICAL/ONCOLOGICAL Hx Blood Disorders: No Hx AIDS: No Hx Cancer: No Hx Human Immunodeficiency Virus (HIV): No - INTEGUMENTARY Hx Dermatological Problems: No - MUSCULOSKELETAL/RHEUMATOLOGICAL Hx Musculoskeletal Disorders: No Hx Falls: Yes - GASTROINTESTINAL Hx Gastritis: Yes - GENITOURINARY/GYNECOLOGICAL Hx Sexually Transmitted Disorders: No - PSYCHIATRIC Hx Substance Use: No - SURGICAL HISTORY Hx Appendectomy: No Hx Carotid Endarterectomy: No Hx Cholecystectomy: No Hx Coronary Artery Bypass Graft: No Hx Coronary Stent: No Hx Tonsillectomy: No - ANESTHESIA Hx Anesthesia: No Hx Anesthesia Reactions: No Hx Malignant Hyperthermia: No Meds Allergies/Adverse Reactions: Allergies Allergy/AdvReac Type Severity Reaction Status Date / Time No Known Allergies Allergy Verified 07/20/18 23:27 - Medications Medications: Current Medications Acetaminophen (Tylenol 325mg Tab) 650 mg PO Q6 PRN PRN Reason: Pain, Mild (1-3) Last Admin: 11/08/18 09:13 Dose: 650 mg Sodium Chloride (Sodium Chloride 0.9%) 1,000 mls @ 70 mls/hr IV .[id number] PALOMA Stop: 11/08/18 14:17 Last Admin: 11/08/18 06:52 Dose: Not Given Pantoprazole Sodium (Protonix Ec Tab) 40 mg PO DAILY [facility] Last Admin: 11/08/18 09:12 Dose: 40 mg Results - Vital Signs Recent Vital Signs: Last Vital Signs Temp 99.0 F 11/08/18 07:55 Pulse 84 11/08/18 07:55 Resp 20 11/08/18 07:55 BP 150/75 11/08/18 07:55 Pulse Ox 97 11/08/18 07:55 - Labs Result Diagrams: 11/07/18 06:37 11/08/18 04:40 Labs: Laboratory Results - last 24 hr 11/07/18 11/07/18 11/07/18 06:37 11:31 23:00 Sodium 127 L 127 L Potassium 4.1 4.6 Chloride 93 L 95 L Carbon Dioxide 20 L 21 L Anion Gap 18 16 BUN 4 L 4 L Creatinine 0.4 L 0.4 L Est GFR ( Amer) > 60 > 60 Est GFR (Non-Af Amer) > 60 > 60 Random Glucose 99 91 Calcium 8.2 L 7.5 L Total Bilirubin 0.6 0.8 AST 27 41 ALT 29 27 Alkaline Phosphatase 76 58 Total Protein 7.4 6.8 Albumin 4.2 3.6 Globulin 3.3 3.2 Albumin/Globulin Ratio 1.3 1.1 Lipase 37 Urine Osmolality 253 L Ur Random Sodium 47 Ur Random Potassium 14.3 Alcohol, Quantitative 12 H 11/07/18 11/08/18 23:00 04:40 Sodium 130 L Potassium 4.0 Chloride 99 Carbon Dioxide 23 Anion Gap 12 BUN 6 L Creatinine 0.4 L Est GFR ( Amer) > 60 Est GFR (Non-Af Amer) > 60 Random Glucose 96 Calcium 7.8 L Total Bilirubin AST ALT Alkaline Phosphatase Total Protein Albumin Globulin Albumin/Globulin Ratio Lipase Urine Osmolality Ur Random Sodium 47 Ur Random Potassium Alcohol, Quantitative Assessment & Plan - Assessment and Plan (Free Text) Assessment: major depression recurrent severe with psychotic features alcohol abuse Plan: pt would benefit from admission to psychiatry upon medical clearance
--- NOTE | 2018-11-08 19:42 | CARD ---
APPROVED REPORT Date of service: 11/08/2018 EKG Measurement Heart [id number] <Conclusion> Normal sinus rhythm Possible Anterior infarct, age undetermined Abnormal ECG
--- NOTE | 2018-11-09 00:26 | CP.PCM.PN ---
Subjective - Date & Time of Evaluation Date of Evaluation: 11/08/18 Time of Evaluation: 09:45 - Subjective Subjective: HPI: 68 y/o male with a PMH of depression and dementia presented to the ED with complaints of worsening depression, auditory hallucinations, and thoughts of self harm. The pt was placed on 1:1 precautions for safety. On initial workup, the serum sodium level was found to be 127. The pt was started on Sodium Ch loride (NS) IVF. PMH: Dementia, Depression, Gastritis, HTN, Pneumonia. PSH: Denies. Social history: Homeless, non-drinker, non-smoker. Allergies: NDKA. Subjective Review of Systems: Reviewed and no additional remarkable complaints except depression, auditory hallucinations, and thoughts of self harm. Objective Appears: Non-toxic, No Acute Distress. Head Exam: NORMAL INSPECTION, normocephalic. Eye Exam: Normal eye inspection, EOMI, PERRLA. Respiratory Exam: NORMAL BREATHING PATTERN, breath sounds clear to auscultation. Cardiovascular Exam: +S1, +S2. RRR. GI & Abdominal Exam: Soft, non-tender, non-distended. Neurological Exam: Alert, Awake, Oriented x3. Psychiatric exam: Flat Affect, Calm and cooperative. Skin Exam: Pallor, Warm, Dry. Assessment/Impression/Plan: 1.) Hyponatremia -Serum sodium level this morning was 130. -Sodium correcting after sodium chloride (NS) at 70 ml/hr. -Source of hyponatremia is unclear at this time, will continue to monitor. -PO fluid restriction. -Psychiatry consult input appreciated. -Medically stable at this time, pt cleared for discharge to inpatient psych unit. Objective - Vital Signs/Intake and Output Vital Signs (last 24 hours): Temp Pulse Resp BP Pulse Ox 98.7 F 78 16 149/77 97 11/08/18 20:09 11/08/18 20:09 11/08/18 20:09 11/08/18 20:09 11/08/18 20:09 - Medications Medications: Current Medications Acetaminophen (Tylenol 325mg Tab) 650 mg PO Q6 PRN PRN Reason: Pain, Mild (1-3) Last Admin: 11/08/18 09:13 Dose: 650 mg Donepezil HCl (Aricept) 10 mg PO DAILY [facility] Gabapentin (Neurontin) 100 mg PO BID [facility] Last Admin: 11/08/18 17:38 Dose: 100 mg Pantoprazole Sodium (Protonix Ec Tab) 40 mg PO DAILY [facility] Last Admin: 11/08/18 09:12 Dose: 40 mg - Labs Labs: 11/07/18 06:37 11/08/18 04:40
--- NOTE | 2018-11-09 00:29 | CP.PCM.HP ---
History of Present Illness - History of Present Illness History of Present Illness: CC: Depression, auditory hallucinations, suicidal ideations. HPI: 68 y/o male with a PMH of depression and dementia presented to the ED with complaints of worsening depression, auditory hallucinations, and thoughts of self harm. The pt was placed on 1:1 precautions for safety. On initial workup, the serum sodium level was found to be 127. The pt was started on Sodium Chloride (NS) IVF. PMH: Dementia, Depression, Gastritis, HTN, Pneumonia. PSH: Denies. Social history: Homeless, non-drinker, non-smoker. Allergies: NDKA. Subjective Review of Systems: Reviewed and no additional remarkable complaints except depression, auditory hallucinations, and thoughts of self harm. Objective Appears: Non-toxic, No Acute Distress. Head Exam: NORMAL INSPECTION, normocephalic. Eye Exam: Normal eye inspection, EOMI, PERRLA. Respiratory Exam: NORMAL BREATHING PATTERN, breath sounds clear to auscultation. Cardiovascular Exam: +S1, +S2. RRR. GI & Abdominal Exam: Soft, non-tender, non-distended. Neurological Exam: Alert, Awake, Oriented x3. Psychiatric exam: Flat Affect, Calm and cooperative. Skin Exam: Pallor, Warm, Dry. Assessment/Impression/Plan: 1.) Hyponatremia -Serum sodium level this morning was 130. -Sodium correcting after sodium chloride (NS) at 70 ml/hr. -Source of hyponatremia is unclear at this time, will continue to monitor. -PO fluid restriction. -Psychiatry consult input appreciated. -1:1 safety/self harm precautions -Medically stable at this time, pt cleared for discharge to inpatient psych unit. Present on Admission - Present on Admission Any Indicators Present on Admission: No Past Patient History - Past Medical History & Family History Past Medical History?: No - Past Social History Smoking Status: Never Smoked - CARDIAC Hx Cardiac Disorders: No Hx Hypertension: No - PULMONARY Hx Respiratory Disorders: No Hx Tuberculosis: No - NEUROLOGICAL HX Cerebrovascular Accident: No Hx Seizures: No - HEENT Hx HEENT Problems: No Other/Comment: Wears bifocal glasses. - RENAL Hx Chronic Kidney Disease: No - ENDOCRINE/METABOLIC Hx Endocrine Disorders: No - HEMATOLOGICAL/ONCOLOGICAL Hx Blood Disorders: No Hx AIDS: No Hx Cancer: No Hx Human Immunodeficiency Virus (HIV): No - INTEGUMENTARY Hx Dermatological Problems: No - MUSCULOSKELETAL/RHEUMATOLOGICAL Hx Musculoskeletal Disorders: No Hx Falls: Yes - GASTROINTESTINAL Hx Gastritis: Yes - GENITOURINARY/GYNECOLOGICAL Hx Sexually Transmitted Disorders: No - PSYCHIATRIC Hx Substance Use: No - SURGICAL HISTORY Hx Appendectomy: No Hx Carotid Endarterectomy: No Hx Cholecystectomy: No Hx Coronary Artery Bypass Graft: No Hx Coronary Stent: No Hx Tonsillectomy: No - ANESTHESIA Hx Anesthesia: No Hx Anesthesia Reactions: No Hx Malignant Hyperthermia: No Meds Home Medications: Home Medication List Medication Instructions Recorded Confirmed Type Acetaminophen [Tylenol 325mg tab] 650 mg PO Q6 PRN tab 11/08/18 Rx Pantoprazole [Protonix EC Tab] 40 mg PO DAILY ect 11/08/18 Rx Allergies/Adverse Reactions: Allergies Allergy/AdvReac Type Severity Reaction Status Date / Time No Known Allergies Allergy Verified 07/20/18 23:27 Results - Vital Signs Recent Vital Signs: Last Vital Signs Temp 98.7 F 11/08/18 20:09 Pulse 78 11/08/18 20:09 Resp 16 11/08/18 20:09 BP 149/77 11/08/18 20:09 Pulse Ox 97 11/08/18 20:09 - Labs Result Diagrams: 11/07/18 06:37 11/08/18 04:40 Labs: Laboratory Results - last 24 hr 11/07/18 11/07/18 11/08/18 23:00 23:00 04:40 Sodium 130 L Potassium 4.0 Chloride 99 Carbon Dioxide 23 Anion Gap 12 BUN 6 L Creatinine 0.4 L Est GFR ( Amer) > 60 Est GFR (Non-Af Amer) > 60 Random Glucose 96 Calcium 7.8 L Urine Osmolality 253 L Ur Random Sodium 47 47 Ur Random Potassium 14.3 Assessment & Plan (1) Hyponatremia Status: Acute (2) Depression Status: Acute
[2018-11-09] MEDS: Pantoprazole 40 mg EC Tab PO SCH (09:34)
[2018-11-09 12:14] LABS: BLOOD UREA NITROGEN 4 mg/dl (9-20); CALCIUM 8.1 mg/dL (8.4-10.2); GFR NON-AFRICAN AMERICAN > 60
[2018-11-09] MEDS: Sodium Chloride 0.9% 1,000 ML IV SCH (13:13)
[2018-11-09] MEDS: Promethazine 6.25 MG/5 ML CUP PO PRN (22:18)
[2018-11-10] MEDS: Sodium Chloride 0.9% 1,000 ML IV SCH (04:39)
[2018-11-10 06:21] LABS: BLOOD UREA NITROGEN 5 mg/dl (9-20); CALCIUM 8.3 mg/dL (8.4-10.2); GFR NON-AFRICAN AMERICAN > 60
[2018-11-10] MEDS: Promethazine 6.25 MG/5 ML CUP PO PRN ×2 (09:17→16:49)
[2018-11-10] MEDS: Pantoprazole 40 mg EC Tab PO SCH (09:18)
--- NOTE | 2018-11-10 13:19 | RAD ---
Date of service: 11/10/2018 HISTORY: Cough. COMPARISON: 06/20/2018. TECHNIQUE: Chest PA and lateral views FINDINGS: LUNGS: No active pulmonary disease. PLEURA: No significant pleural effusion identified. No pneumothorax apparent. CARDIOVASCULAR: Atherosclerotic calcifications identified primarily aortic arch. No radiographic findings to suggest acute or significant cardiovascular disease. OSSEOUS STRUCTURES: No significant abnormalities. VISUALIZED UPPER ABDOMEN: Normal. OTHER FINDINGS: None. IMPRESSION: No active pulmonary disease. No significant interval change compared to the prior examination(s).
--- NOTE | 2018-11-10 15:11 | CP.PCM.CON ---
History of Present Illness - History of Present Illness History of Present Illness: There is 68 years of age male I was called to see him for hyponatremia. Patient is not giving much history however the medical record reviewed and the history from the medical record as follow along PMH of depression and dementia presented to the ED with complaints of worsening depression, auditory hallucinations, and thoughts of self harm. The pt was placed on 1:1 precautions for safety. On initial workup, the serum sodium level was found to be 127. The pt was started on Sodium Chloride (NS) IVF. PMH: Dementia, Depression, Gastritis, HTN, Pneumonia. PSH: Denies. Social history: Homeless, non-drinker, non-smoker. Review of Systems - Constitutional Constitutional: Anorexia. absent: Chills - Cardiovascular Cardiovascular: absent: Acrocyanosis, Chest Pain, Leg Edema - Respiratory Respiratory: absent: Cough, Hemoptysis - Gastrointestinal Gastrointestinal: absent: Abdominal Pain - Genitourinary Genitourinary: Nocturia. absent: Dysuria, Urinary Hesitance - Musculoskeletal Musculoskeletal: Muscle Weakness - Integumentary Integumentary: absent: Furuncle - Neurological Neurological: As Per HPI, Confusion - Psychiatric Psychiatric: Confusion. absent: Anxiety, Irritability - Endocrine Endocrine: Fatigue - Hematologic/Lymphatic Hematologic: absent: Easy Bleeding Past Patient History - Past Medical History & Family History Past Medical History?: No - Past Social History Smoking Status: Never Smoked - CARDIAC Hx Cardiac Disorders: No Hx Hypertension: No - PULMONARY Hx Respiratory Disorders: No Hx Tuberculosis: No - NEUROLOGICAL HX Cerebrovascular Accident: No Hx Seizures: No - HEENT Hx HEENT Problems: No Other/Comment: Wears bifocal glasses. - RENAL Hx Chronic Kidney Disease: No - ENDOCRINE/METABOLIC Hx Endocrine Disorders: No - HEMATOLOGICAL/ONCOLOGICAL Hx Blood Disorders: No Hx AIDS: No Hx Cancer: No Hx Human Immunodeficiency Virus (HIV): No - INTEGUMENTARY Hx Dermatological Problems: No - MUSCULOSKELETAL/RHEUMATOLOGICAL Hx Musculoskeletal Disorders: No Hx Falls: Yes - GASTROINTESTINAL Hx Gastritis: Yes - GENITOURINARY/GYNECOLOGICAL Hx Sexually Transmitted Disorders: No - PSYCHIATRIC Hx Substance Use: Yes - SURGICAL HISTORY Hx Appendectomy: No Hx Carotid Endarterectomy: No Hx Cholecystectomy: No Hx Coronary Artery Bypass Graft: No Hx Coronary Stent: No Hx Tonsillectomy: No - ANESTHESIA Hx Anesthesia: No Hx Anesthesia Reactions: No Hx Malignant Hyperthermia: No Meds Home Medications: Home Medication List Medication Instructions Recorded Confirmed Type Acetaminophen [Tylenol 325mg tab] 650 mg PO Q6 PRN tab 11/08/18 Rx Pantoprazole [Protonix EC Tab] 40 mg PO DAILY ect 11/08/18 Rx Montelukast [Singulair] 10 mg PO DAILY tab 11/10/18 Rx Promethazine [Phenergan Syrup] 6.25 mg PO Q6 PRN cup 11/10/18 Rx Allergies/Adverse Reactions: Allergies Allergy/AdvReac Type Severity Reaction Status Date / Time No Known Allergies Allergy Verified 07/20/18 23:27 - Medications Medications: Current Medications Acetaminophen (Tylenol 325mg Tab) 650 mg PO Q6 PRN PRN Reason: Pain, Mild (1-3) Last Admin: 11/08/18 09:13 Dose: 650 mg Donepezil HCl (Aricept) 10 mg PO DAILY [facility] Last Admin: 11/10/18 09:17 Dose: 10 mg Gabapentin (Neurontin) 100 mg PO BID [facility] Last Admin: 11/10/18 09:17 Dose: 100 mg Montelukast Sodium (Singulair) 10 mg PO DAILY [facility] Last Admin: 11/10/18 12:32 Dose: 10 mg Pantoprazole Sodium (Protonix Ec Tab) 40 mg PO DAILY [facility] Last Admin: 11/10/18 09:18 Dose: 40 mg Promethazine HCl (Phenergan Syrup) 6.25 mg PO Q6 PRN PRN Reason: Cough Last Admin: 11/10/18 09:17 Dose: 6.25 mg Physical Exam - Constitutional Appears: No Acute Distress - Eye Exam Eye Exam: Conjunctival injection - ENT Exam ENT Exam: Mucous Membranes Moist - Neck Exam Neck exam: Negative for: Lymphadenopathy - Respiratory Exam Respiratory Exam: NORMAL BREATHING PATTERN. absent: Chest Wall Tenderness - Cardiovascular Exam Cardiovascular Exam: absent: Gallop, JVD, Rubs - GI/Abdominal Exam GI & Abdominal Exam: Normal Bowel Sounds. absent: Guarding - Extremities Exam Extremities exam: Negative for: calf tenderness - Back Exam Back exam: absent: CVA tenderness (L), CVA tenderness (R) - Neurological Exam Neurological exam: Alert Results - Vital Signs Recent Vital Signs: Last Vital Signs Temp 98.8 F 11/10/18 12:41 Pulse 77 11/10/18 12:41 Resp 20 11/10/18 12:41 BP 113/64 11/10/18 12:41 Pulse Ox 98 11/10/18 12:41 - Labs Result Diagrams: 11/07/18 06:37 11/10/18 04:35 Labs: Laboratory Results - last 24 hr 11/10/18 04:35 Sodium 132 Potassium 4.3 Chloride 100 Carbon Dioxide 25 Anion Gap 11 BUN 5 L Creatinine 0.4 L Est GFR ( Amer) > 60 Est GFR (Non-Af Amer) > 60 Random Glucose 98 Calcium 8.3 L Assessment & Plan - Assessment and Plan (Free Text) Assessment: Hyponatremic syndrome Rule out SIADH? Recommendation Patient responded initially to intravenous normal saline serum sodium came up th en start trending down therefore We will give oral sodium chloride for the next 24 hours and monitor serum sodium if continued to drop [facility]
[2018-11-10 19:58] VITALS: BP 146/80; PULSE 87; RESP 18; TEMP 98.7; O2SAT 97
--- NOTE | 2018-11-13 05:44 | CP.PCM.DIS ---
Provider - Provider Date of Admission: 11/07/18 12:30 Attending physician: Venkat Flores MD Consults: 11/08/18 08:44 Psychiatry Consult Routine Comment: Consulting Provider: Jessica Mi Consulting Physician: Jessica Mi Reason for Consult: Depression, suicide 11/10/18 11:09 Nephrology Consult Routine Comment: Consulting Provider: Florentino Cantrell Consulting Physician: Florentino Cantrell Reason for Consult: hyponatremia Time Spent in preparation of Discharge (in minutes): 30 Hospital Course - Lab Results Lab Results: Most Recent Lab Values WBC 9.9 K/uL (4.8-10.8) D 11/07/18 06:37 RBC 3.69 Mil/uL (4.40-5.90) L 11/07/18 06:37 Hgb 10.8 g/dL (12.0-18.0) L 11/07/18 06:37 Hct 32.2 % (35.0-51.0) L 11/07/18 06:37 MCV 87.2 fl (80.0-94.0) D 11/07/18 06:37 MCH 29.2 pg (27.0-31.0) 11/07/18 06:37 MCHC 33.5 g/dL (33.0-37.0) 11/07/18 06:37 RDW 16.0 % (11.5-14.5) H 11/07/18 06:37 Plt Count 502 K/uL (130-400) H 11/07/18 06:37 MPV 7.5 fl (7.2-11.7) 11/07/18 06:37 Neut % (Auto) 69.4 % (50.0-75.0) 11/07/18 06:37 Lymph % (Auto) 16.6 % (20.0-40.0) L 11/07/18 06:37 Wythe % (Auto) 12.0 % (0.0-10.0) H 11/07/18 06:37 Eos % (Auto) 1.1 % (0.0-4.0) 11/07/18 06:37 Baso % (Auto) 0.9 % (0.0-2.0) 11/07/18 06:37 Neut # (Auto) 6.8 K/uL (1.8-7.0) 11/07/18 06:37 Lymph # (Auto) 1.6 K/uL (1.0-4.3) 11/07/18 06:37 Wythe # (Auto) 1.2 K/uL (0.0-0.8) H 11/07/18 06:37 Eos # (Auto) 0.1 K/uL (0.0-0.7) 11/07/18 06:37 Baso # (Auto) 0.1 K/uL (0.0-0.2) 11/07/18 06:37 Sodium 132 mmol/l (132-148) 11/10/18 04:35 Potassium 4.3 MMOL/L (3.6-5.0) 11/10/18 04:35 Chloride 100 mmol/L (98-107) 11/10/18 04:35 Carbon Dioxide 25 mmol/L (22-30) 11/10/18 04:35 Anion Gap 11 (10-20) 11/10/18 04:35 BUN 5 mg/dl (9-20) L 11/10/18 04:35 Creatinine 0.4 mg/dl (0.8-1.5) L 11/10/18 04:35 Est GFR ( Amer) > 60 11/10/18 04:35 Est GFR (Non-Af Amer) > 60 11/10/18 04:35 POC Glucose (mg/dL) 114 mg/dL (65-110) H 11/07/18 06:35 Random Glucose 98 mg/dL (75-110) 11/10/18 04:35 Calcium 8.3 mg/dL (8.4-10.2) L 11/10/18 04:35 Total Bilirubin 0.8 mg/dl (0.2-1.3) 11/07/18 11:31 AST 41 U/L (17-59) 11/07/18 11:31 ALT 27 U/L (21-72) 11/07/18 11:31 Alkaline Phosphatase 58 U/L (38-126) 11/07/18 11:31 Total Protein 6.8 G/DL (6.3-8.2) 11/07/18 11:31 Albumin 3.6 g/dL (3.5-5.0) 11/07/18 11:31 Globulin 3.2 gm/dL (2.2-3.9) 11/07/18 11:31 Albumin/Globulin Ratio 1.1 (1.0-2.1) 11/07/18 11:31 Lipase 37 U/L (23-300) 11/07/18 06:37 Urine Color Yellow (YELLOW) 11/07/18 06:38 Urine Clarity Slighty-cloudy (Clear) 11/07/18 06:38 Urine pH 7.0 (5.0-8.0) 11/07/18 06:38 Ur Specific Humble 1.009 (1.003-1.030) 11/07/18 06:38 Urine Protein Negative mg/dL (NEGATIVE) 11/07/18 06:38 Urine Glucose (UA) Neg mg/dL (NEGATIVE) 11/07/18 06:38 Urine Ketones Trace mg/dL (NEGATIVE) 11/07/18 06:38 Urine Blood Small (NEGATIVE) 11/07/18 06:38 Urine Nitrate Negative (NEGATIVE) 11/07/18 06:38 Urine Bilirubin Negative (NEGATIVE) 11/07/18 06:38 Urine Urobilinogen 0.2-1.0 mg/dL (0.2-1.0) 11/07/18 06:38 Ur Leukocyte Esterase Neg Janelle/uL (Negative) 11/07/18 06:38 Urine RBC (Auto) 4 /hpf (0-3) H 11/07/18 06:38 Urine Microscopic WBC < 1 /hpf (0-5) 11/07/18 06:38 Urine Osmolality 391 mosm/kg (300-1000) 11/10/18 18:20 Ur Random Sodium 47 mmol/L 11/07/18 23:00 Ur Random Potassium 14.3 mmol/L 11/07/18 23:00 Urine Opiates Screen Negative (NEGATIVE) 11/07/18 06:38 Urine Methadone Screen Negative (NEGATIVE) 11/07/18 06:38 Ur Barbiturates Screen Negative (NEGATIVE) 11/07/18 06:38 Ur Phencyclidine Scrn Negative (NEGATIVE) 11/07/18 06:38 Ur Amphetamines Screen Negative (NEGATIVE) 11/07/18 06:38 U Benzodiazepines Scrn Negative (NEGATIVE) 11/07/18 06:38 U Oth Cocaine Metabols Negative (NEGATIVE) 11/07/18 06:38 U Cannabinoids Screen Negative (NEGATIVE) 11/07/18 06:38 Alcohol, Quantitative 12 mg/dl (0-10) H 11/07/18 06:37 - Hospital Course Hospital Course: This is a 68 y/o male admitted for depression and suicidal thoughts was noted to have hyponatremia in the range of 126 to 127. He was kept at one to one observation . Given saline and water restriction. Sodium was monitored. Psychiatrist evaluated patinet and as soon as sodium reached 133 he ws discharged to Psych floor for continuation of Psych treatment. He was discharged in stable condition and will be followed up in the floor. Discharge Exam - Head Exam Head Exam: ATRAUMATIC, NORMOCEPHALIC - Eye Exam Eye Exam: Normal appearance - Respiratory Exam Respiratory Exam: NORMAL BREATHING PATTERN - Cardiovascular Exam Cardiovascular Exam: REGULAR RHYTHM - GI/Abdominal Exam GI & Abdominal Exam: Normal Bowel Sounds - Neurological Exam Neurological exam: CN II-XII Intact - Skin Skin Exam: Intact Discharge Plan - Follow Up Plan Condition: FAIR Disposition: REHAB FACILITY/REHAB UNIT Instructions: Depression, Adult (DC), Hyponatremia (DC) Additional Instructions: discharge pt to [facility] Referrals: Beti Roca MD [Medical Doctor] - Jacky Paulino MD [Staff Provider] - Venkat Flores MD [Medical Doctor] -
--- NOTE | 2018-11-13 05:52 | CP.PCM.PN ---
Subjective - Date & Time of Evaluation Date of Evaluation: 11/09/18 Time of Evaluation: 10:50 - Subjective Subjective: Patient remains stable Noted to have sodium of 129. On one to one obs. Has no headaches Has no dizziness. Objective - Vital Signs/Intake and Output Vital Signs (last 24 hours): Temp Pulse Resp BP Pulse Ox 98.7 F 87 18 146/80 97 11/10/18 19:57 11/10/18 19:57 11/10/18 19:57 11/10/18 19:57 11/10/18 19:57 - Labs Labs: 11/07/18 06:37 11/10/18 04:35 - Head Exam Head Exam: NORMAL INSPECTION - Eye Exam Eye Exam: Normal appearance - ENT Exam ENT Exam: Mucous Membranes Moist - Respiratory Exam Respiratory Exam: Clear to Ausculation Bilateral - Cardiovascular Exam Cardiovascular Exam: REGULAR RHYTHM - GI/Abdominal Exam GI & Abdominal Exam: Normal Bowel Sounds - Neurological Exam Neurological Exam: CN II-XII Intact, Oriented x3 Assessment and Plan (1) Depression Status: Acute (2) Hyponatremia Status: Acute - Assessment and Plan (Free Text) Plan: Cont meds cont tx water restriction liberal salt.
== END 2018-11-10 22:10 | DRG 425 ==
LOC: H.ER 05:29 → H.ERHOLD 12:30 → H.TEL 14:11
PROVIDERS: ADMIT Family Medicine; ATTEND Family Medicine
DX: E87.1 Hypo-osmolality and hyponatremia (principal); F33.3 Major depressive disorder, recurrent, severe with psychotic symptoms; R45.851 Suicidal ideations; F03.90 Unspecified dementia, unspecified severity, without behavioral disturbance, psychotic disturbance, mood disturbance, and anxiety; F10.10 Alcohol abuse, uncomplicated; E87.6 Hypokalemia; Z91.14 Patient's other noncompliance with medication regimen; I10 Essential (primary) hypertension; K29.70 Gastritis, unspecified, without bleeding; Z59.0 Homelessness

== ENCOUNTER 2018-11-10 17:26 | Inpatient (IN) | payer MEDICAID ==
[2018-11-10 22:16] VITALS: BMI 17.5
[2018-11-10] MEDS ORDERED: Alum-Mag Hydrox-Simethicone Susp (30 mL) PO PRN (23:00)
[2018-11-10] MEDS ORDERED: Magnesium Hydroxide Susp 30 ml UD PO PRN (23:00)
[2018-11-10] MEDS ORDERED: Bismuth Subsalicylate 262 mg/15 ml Sus (240 ml) PO PRN (23:00)
--- NOTE | 2018-11-10 23:11 | PCM.BM ---
<Ulises Reed - Last Filed: 11/10/18 23:08> Treatment Plan Problems - Problems identified on initial assessmt Hopelessness/Helplessness Date Initiated: 11/10/18 Time Initiated: 23:09 Assessment reference: NA Status: Active Priority: 1 Social Isolation Date Initiated: 11/10/18 Time Initiated: 23:09 Assessment reference: NA Status: Active Priority: 2 Medication nonadherence Date Initiated: 11/10/18 Time Initiated: 23:09 Assessment reference: NA Status: Active Priority: 3 Delusion Date Initiated: 11/10/18 Time Initiated: 23:10 Assessment reference: NA Status: Active Priority: 4 Treatment assets and liabiliti Patient Assests: adapts well, cooperative, negotiates basic needs Patient Liabilities: live alone, financial problems, poor support system, substance abuse, medical problems - Milieu Protocol Maintain good personal hygiene: daily Encourage regular showers, daily Remind patient to perform daily oral care, daily Assist patient to perform ADL's Conduct patient checks and document Observation sheet: 1:1 Maintain personal safety: every shift Educate patient to report safety concerns to staff, every shift Monitor environment for contraband/sharps Medication safety: Monitor for expected outcome, potential side effects: every shift, Assess barriers to learning: every shift, Assess readiness for medication education: every shift <Sujit Bhat - Last Filed: 11/12/18 17:16> Family Contact Family involvement: Famliy/SO not involved Family contact: Patient declines to allow family contact at present Family contact name: Pt denied. - Goals for Treatment Patient goals for treatment: Pt reported that he would like to and therefore has no goals for treatment at this time. Pt cannot name reasons to live or things on this earth that he can live for. Pt continues to speak [facility] Discharge/Continuing Care - Education Needs Education Needs: Patient Medication, Patient Diagnosis/Disease Process, Patient Coping Skills, Patient Aftercare Safety Plan - Discharge Discharge Criteria: Tolerates medication w/o severe side effects, Free of Suicidal thoughts, Free of agitation, Normal sleep pattern, Ability to care for self, Reduction of target symptoms Discharge to:: Home <Danyelle Ayoub - Last Filed: 11/13/18 10:31> - Diagnosis (1) Major depressive disorder Status: Chronic Interventions: Medication management, Individual and group therapy, Psychoeducation 11/13/18 10:31 <Glenda Amanda Katie - Last Filed: 11/14/18 08:44> Family Contact Family involvement: Famliy/SO not involved - Outside Agency [facility] Care involvment: Information-sharing Agency contact name: Dr. Karen MD Agency contact number: - Goals for Treatment Patient goals for treatment: Pt will improce overall mood. Pt will be free of suicide ideation. Pt will develop strategies for thought distraction when ruminating about the past. Pt will comply with prescribed medications. Pt will attend clinical and activity groups. Pt will engage in unit activities and rules/regulations. Discharge/Continuing Care - Education Needs Education Needs: Patient Medication, Patient Diagnosis/Disease Process, Patient Coping Skills, Patient Community resources, Patient Nutrition, Patient Health Practices/Safety, Patient Personal Hygiene/Grooming, Patient Aftercare Safety Plan - Discharge Discharge Criteria: Tolerates medication w/o severe side effects, Free of Suicidal thoughts, Free of agitation, Normal sleep pattern, No longer exhibiting s/s of withdrawal Discharge to:: Long Term (Pt reported he is a resident at [facility]) - Additional Comments 11/14/18 08:34 Pt seen and discussed in team meeting. Reason for admission reviewed and discussed. Pt reported he was self-referred tot hospital due to worsening depression and suicide ideation in the context of medication non-compliance. When assessed for mood, pt stated "I feel perfectly fine, thank god." Pt denied active SI and HI. Pt reported his plan is to return to [facility] and continue to attend [facility] Tuesday through Tuesday form 8am to 530pm. 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 Pt denied active AVH. Pt denied any paranoia. Pt reported "I have positive thoughts to go out and continue on with my life, only God knows how many years i have." Pt reported that his appetite is good. Pt reported difficulty falling asleep, but once asleep reports no issues. Pt requesting to leave the hospital. Pt stated "I feel relieved and there is someone in my situation that might need my bed and i don't need to be here anymore." Pt signed a 48 hour notice of intent to leave at 1050am on 11/13/2018. Pt's medications reviewed and discussed. Pt's social and medical issues reviewed. Tx plan reviewed and discussed. SW will continue to follow case. - Treatment Team Participation Discussed with Family/SO: No Was Patient/Family/SO present at Treatment Team Meeting: Yes
[2018-11-11 06:47] LABS: HEMOGLOBIN 11.3 g/dL (12.0-18.0); MEAN CORPUSCULAR HEMOGLOBIN 28.7 pg (27.0-31.0); MEAN CORPUSCULAR HGB CONC 32.5 g/dL (33.0-37.0); RBC 3.96 Mil/uL (4.40-5.90); RED CELL DISTRIBUTION WIDTH 16.8 % (11.5-14.5); WHITE BLOOD COUNT 7.6 K/uL (4.8-10.8)
[2018-11-11 06:58] LABS: BLOOD UREA NITROGEN 6 mg/dl (9-20); CALCIUM 8.3 mg/dL (8.4-10.2); GFR NON-AFRICAN AMERICAN > 60; HDL CHOLESTEROL 31 MG/DL (30-70)
[2018-11-11 07:11] LABS: LDL CHOLESTEROL 88 mg/dL (0-129)
[2018-11-11 07:12] LABS: IRON 18 ug/dL (49-181)
[2018-11-11 07:22] LABS: % IRON SATURATION 5 % (20-55); TOTAL IRON BINDING CAPACITY 343 ug/dL (250-450)
[2018-11-11 07:34] LABS: FERRITIN 18.5 ng/Ml (17.9-464)
[2018-11-11] MEDS ORDERED: Promethazine 6.25 MG/5 ML CUP PO PRN (12:51)
[2018-11-11 13:21] LABS: FOLATE 13.3 ng/mL
[2018-11-11] MEDS: Pantoprazole 40 mg EC Tab PO SCH (16:47)
[2018-11-12] MEDS: Pantoprazole 40 mg EC Tab PO SCH (09:25)
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
[2018-11-13] MEDS: Pantoprazole 40 mg EC Tab PO SCH (08:50)
--- NOTE | 2018-11-13 10:40 | PCM.PYCHPN ---
Psychiatric Progress Note - Psychiatric Progress Note Patient seen today, length of contact: Pt evaluated, case discussed w/ team, chart reviewed Patient Chief Complaint: "I'm feeling better." Problems Identified/Issues Discussed: Patient reports that his mood has improved. He denies feeling acutely depressed or anxious. He denies acute AH/VH/SI/HI. He reports that he wants to leave the hospital and signed a 48 hr notice. Facer Operator discussed the importance of comp liance with treatment and medications. He continues to report poor appetite. Medication Change: Yes (Increase Remeron) Medical Record Reviewed: Yes Consults ordered or reviewed: Medicine consult Mental Status Examination - Cognitive Function Orientation: Person, Place, Situation, Time Memory: Intact Attention: WNL Concentration: WNL Association: WNL Fund of Knowledge: [facility] Decription of patient's judgement and insights: Fair I/J - Mood Mood: Neutral - Affect Affect: Constricted - Speech Speech: Appropriate - Formal Thought Process Formal Thought Process: No Impairment Psychotic Thoughts and Behaviors: No AH/VH/paranoia/delusions - Suicidal Ideation Suicidal Ideation: No - Homicidal Ideation Homicidal Ideation: No Goal/Treatment Plan - Goal/Treatment Plan Need for Continued Stay: Remain at risks for inpatient hospitalization Progress Toward Problem(s) and Goals/Treatment Plan: Major Depressive Disorder -Increase Remeron -Pt signed a 48 hr letter, will observe for clinical safety overnight, with likely discharge tomorrow as patient does not currently meet criteria for involuntary psychiatric commitment -Medicine consult -Individual and group therapy -Psychoeducation -Disposition planning Estimated Date of D/C: 11/14/18 - Smoking Cessation Smoking Cessation Initiated: Yes Reason for not providing: Patient declined
[2018-11-14 06:35] VITALS: BP 128/73; PULSE 73; RESP 18; TEMP 98.1
[2018-11-14] MEDS: Pantoprazole 40 mg EC Tab PO SCH (08:05)
--- NOTE | 2018-11-14 08:15 | PCM.PYCHDC ---
Mental Status Examination - Mental Status Examination Orientation: Person, Place, Situation, Time Memory: Intact Mood: Neutral Affect: Broad Speech: Appropriate Attention: WNL Concentration: WNL Association: WNL Fund of Knowledge: WNL Formal Thought Process: No Impairment Description of patient's judgement and insight: Fair I/J Psychotic Thoughts and Behaviors: No AH/VH/paranoia/delusions Suicidal Ideation: No Current Homicidal Ideation?: No Discharge Summary - Discharge Note Reason for Hospitalization: 68 yo male w/ h/o depression initially admitted to telemetry w/ hyponatremia, then transferred to geropsychiatry for management of his depression. Consultations:: List each consultation separately and include: 1. Reason for request. 2. Findings. 3. Follow-up Consultations: Medicine consult Summary of Hospital Course include:: 1. Description of specific treatment plan utilized for patients during their course of treatmen. 2. Summarize the time- course for resolution of acute symptoms and/or regressed behaviors. 3. Describe issues identified and worked on during hospitalization. 4. Describe medication utilized. 5. Describe medical problems identified and treated. 6. Reassessment of suicide risk Summary of Hospital Course: Patient was restarted on Remeron and titrated up to 15 mg PO HS. He submitted a 48 hr letter requesting to be discharged. He reports that his mood has improved. He denies acute depression/anxiety/AH/VH/SI/HI. He does not meet criteria for involuntary commitment at this time. Psychoeducation provided on the importance of compliance with treatment and medications. - Diagnosis (1) Major depressive disorder Current Visit: No Status: Chronic - Final Diagnosis (DSM 5) Condition upon Discharge: STABLE DSM 5: Major Depressive Disorder Disposition: HOME/ ROUTINE Follow-up Treatment Plan: Major Depressive Disorder -Continue Remeron 15 mg PO HS Prescriptions/Medication Reconciliation: Mirtazapine [Remeron] 15 mg PO HS #30 tab Montelukast [Singulair] 10 mg PO DAILY #30 tab Pantoprazole [Protonix EC Tab] 40 mg PO DAILY #30 ect - Smoking Cessation Smoking Cessation Medication prescribed: No Reason for not providing: Patient declined - Antipsychotic Medications Pt discharged on 2 or more routine antipsychotic medications: No
== END 2018-11-14 09:30 | disposition home or self-care (01) | DRG 754 ==
LOC: H.STEP 22:19
PROVIDERS: ADMIT Psychiatry & Neurology Psychiatry; ATTEND Psychiatry & Neurology Psychiatry
DX: F32.9 Major depressive disorder, single episode, unspecified (principal); R45.851 Suicidal ideations; Z91.14 Patient's other noncompliance with medication regimen; Z59.0 Homelessness; K29.70 Gastritis, unspecified, without bleeding; I10 Essential (primary) hypertension; Z59.9 Problem related to housing and economic circumstances, unspecified

== ENCOUNTER 2018-11-19 22:35 | Inpatient (IN) | payer MEDICAID ==
--- NOTE | 2018-11-19 23:55 | ED PDOC ---
HPI: Psych/Substance Abuse Time Seen by Provider: 11/19/18 23:31 Chief Complaint (Nursing): Psychiatric Evaluation Chief Complaint (Provider): psych eval History Per: Patient History/Exam Limitations: no limitations Onset/Duration Of Symptoms: Hrs Current Symptoms Are (Timing): Still Present Suicide/Self Injury Attempted (Context): None Modifying Factor(s): None Severity: Moderate Additional History Per: Patient Additional Complaint(s): 68 y/o male with history of depression, presents to the ED c/o depression and suicidal ideations since 12pm today. Patient [place] and he is tired of living with "incompatible people". He states he has not family in the [place] and he lost everything he had over one month ago. Patient states he is complaint with medications. He denies having a plan. Denies homicidal ideations, drug use, alcohol use, physical complaints. Past Medical History Reviewed: Historical Data, Nursing Documentation, Vital Signs Vital Signs: Last Vital Signs Temp 98.9 F 11/19/18 22:42 Pulse 98 H 11/19/18 22:42 Resp 16 11/19/18 22:42 BP 141/67 11/19/18 22:42 Pulse Ox 97 11/19/18 22:42 Primary Care Provider: FAMILY PROVIDER,NO - Medical History PMH: Dementia, Depression, Gastritis, Pneumonia Denies: Anxiety, Bipolar Disorder, Diabetes, Hepatitis, HIV, HTN, Paranoia, Post Traumatic Stress Disorder, Chronic Kidney Disease, Schizophrenia, Seizures, Sexually Transmitted Disease - Surgical History Surgical History: Denies: Appendectomy, CABG, Carotid Endarterectomy, Cholecystectomy, Coronary Stent, Tonsillectomy - Family History Family History: States: Unknown Family Hx - Social History Alcohol: None Drugs: Denies - Immunization History Hx Tetanus Toxoid Vaccination: Yes Hx Influenza Vaccination: No Hx Pneumococcal Vaccination: No - Home Medications Home Medications: Ambulatory Orders Medication Instructions Recorded Mirtazapine [Remeron] 15 mg PO HS #30 tab 11/13/18 Montelukast [Singulair] 10 mg PO DAILY #30 tab 11/13/18 Pantoprazole [Protonix EC Tab] 40 mg PO DAILY #30 ect 11/13/18 - Allergies Allergies/Adverse Reactions: Allergies Allergy/AdvReac Type Severity Reaction Status Date / Time No Known Allergies Allergy Verified 11/19/18 22:41 Review of Systems ROS Statement: Except As Marked, All Systems Reviewed And Found Negative Cardiovascular: Negative for: Chest Pain, Palpitations Respiratory: Negative for: Cough, Shortness of Breath, SOB with Exertion, Wheezing Genitourinary Male: Negative for: Dysuria Neurological: Negative for: Weakness Psych: Positive for: Depression, Suicidal ideation Physical Exam - Reviewed Nursing Documentation Reviewed: Yes Vital Signs Reviewed: Yes - Physical Exam Appears: Positive for: Well, Non-toxic, No Acute Distress Head Exam: Positive for: ATRAUMATIC, NORMAL INSPECTION, NORMOCEPHALIC Skin: Positive for: Normal Color, Warm, DRY Eye Exam: Positive for: Normal appearance, PERRL ENT: Positive for: Normal ENT Inspection Neck: Positive for: Normal, Painless ROM, Supple Cardiovascular/Chest: Positive for: Regular Rate, Rhythm Respiratory: Positive for: CNT, Normal Breath Sounds Gastrointestinal/Abdominal: Positive for: Normal Exam, Soft. Negative for: Bowel Sounds, Tenderness Back: Positive for: Normal Inspection Extremity: Positive for: Normal ROM Neurological/Psych: Positive for: Awake, Alert, Normal Tone, Oriented, Mood/Affect (sad, otherwise pleasant and cooperative ) - ECG O2 Sat by Pulse Oximetry: 97 Medical Decision Making Medical Decision Makin:1 observation for safety Crisis eval Patient to be screened by crisis for disposition. patient endorsed to Thomas Lund PA-c to follow up on psych disposition. Disposition - Clinical Impression Clinical Impression: Depression - Patient ED Disposition Is Patient to be Admitted: Transfer of Care Counseled Patient/Family Regarding: Diagnosis - Disposition Disposition: Transfer of Care Disposition Time: 00:00 Condition: GOOD Instructions: Depression, Adult (DC) Patient Signed Over To: Thomas Cha Handoff Comments: pending crisis eval, 1:1 obs - POA Present On Arrival: None
--- NOTE | 2018-11-20 01:14 | ED PDOC ---
- Laboratory Results Result Diagrams: 11/20/18 02:50 11/20/18 02:50 - ECG ECG Rhythm: Positive for: Sinus Rhythm (90). Negative for: ST/T Changes (no changes from 11/07/2018) O2 Sat by Pulse Oximetry: 97 Medical Decision Making Medical Decision Makin:00 case endorsed to me be Harper, PAC pending crisis eval and dispo pt on 1:1 history of suicidal attempt in 2012, pt currently with SI 03:02 CXR reviewed by me - no active disease, no significant changes from 11/10/2018 03:10 pt seen by crisis, plan for admission for depression, Dr. Angulo pt is stable for admission, pt in agreement with treatment and plan Disposition Counseled Patient/Family Regarding: Studies Performed, Diagnosis - Clinical Impression Clinical Impression: Depression - POA Present On Arrival: None - Disposition Disposition: Admitted as In-Patient Disposition Time: 03:15 Condition: GOOD
[2018-11-20 02:59] LABS: BASO # 0.1 K/uL (0.0-0.2); BASO % 1.4 % (0.0-2.0); EOS # 0.3 K/uL (0.0-0.7); EOS % 3.8 % (0.0-4.0); HEMOGLOBIN 10.6 g/dL (12.0-18.0); LYMPH # 2.2 K/uL (1.0-4.3); LYMPH % 24.2 % (20.0-40.0); MEAN CORPUSCULAR HEMOGLOBIN 28.8 pg (27.0-31.0); MEAN CORPUSCULAR HGB CONC 33.5 g/dL (33.0-37.0); MEAN PLATELET VOLUME 7.1 fl (7.2-11.7); MONO % 11.3 % (0.0-10.0); NEUT # 5.4 K/uL (1.8-7.0); NEUT % 59.3 % (50.0-75.0); RBC 3.67 Mil/uL (4.40-5.90); RED CELL DISTRIBUTION WIDTH 15.8 % (11.5-14.5); WHITE BLOOD COUNT 9.1 K/uL (4.8-10.8)
[2018-11-20 03:11] LABS: URINE BILIRUBIN NEGATIVE (NEGATIVE); URINE BLOOD SMALL (NEGATIVE); URINE CLARITY CLEAR (Clear); URINE COLOR YELLOW (YELLOW); URINE GLUCOSE (UA) NEG (NEGATIVE); URINE LEUKOCYTE ESTERASE NEG Leu/uL (Negative); URINE PROTEIN NEGATIVE (NEGATIVE); URINE UROBILINOGEN 0.2-1.0 mg/dL (0.2-1.0)
[2018-11-20 03:27] LABS: ALB/GLOB RATIO 1.2 (1.0-2.1); ALBUMIN 3.9 g/dL (3.5-5.0); ALT/SGPT 22 U/L (21-72); AST/SGOT 18 U/L (17-59); BARBITURATES, UR NEGATIVE (NEGATIVE); BENZODIAZEPINES, UR NEGATIVE (NEGATIVE); BLOOD UREA NITROGEN 7 mg/dl (9-20); CALCIUM 8.9 mg/dL (8.4-10.2); GFR NON-AFRICAN AMERICAN > 60; OPIATES, UR NEGATIVE (NEGATIVE); PHENCYCLIDINE, UR NEGATIVE (NEGATIVE)
[2018-11-20 04:56] VITALS: O2SAT 97
[2018-11-20] MEDS ORDERED: Magnesium Hydroxide Susp 30 ml UD PO PRN (05:04)
[2018-11-20] MEDS ORDERED: Bismuth Subsalicylate 262 mg/15 ml Sus (240 ml) PO PRN (05:04)
[2018-11-20] MEDS ORDERED: Alum-Mag Hydrox-Simethicone Susp (30 mL) PO PRN (05:04)
--- NOTE | 2018-11-20 05:30 | PCM.BM ---
<Saul Peralta - Last Filed: 11/20/18 05:28> Treatment Plan Problems - Problems identified on initial assessmt Suicidal Ideation Date Initiated: 11/20/18 Time Initiated: 05:28 Assessment reference: NA Status: Active Priority: 1 Medicatoin Nonadherence Date Initiated: 11/20/18 Time Initiated: 05:29 Assessment reference: NA Status: Active Priority: 2 Altered Sleep Pattern Date Initiated: 11/20/18 Time Initiated: 05:29 Assessment reference: NA Status: Active Priority: 3 Ineffective Coping Date Initiated: 11/20/18 Time Initiated: 05:29 Assessment reference: NA Status: Active Priority: 4 Hopelessness/Helplessness Date Initiated: 11/20/18 Time Initiated: 05:30 Assessment reference: NA Status: Active Priority: 5 Feeling of Worthlessness Date Initiated: 11/20/18 Time Initiated: 05:30 Assessment reference: NA Status: Active Priority: 6 Activity Intolerance Date Initiated: 11/20/18 Time Initiated: 05:31 Assessment reference: NA Status: Active Priority: 7 Treatment assets and liabiliti Patient Assests: adapts well, cooperative, negotiates basic needs Patient Liabilities: live alone, financial problems, poor support system, language/speech ([place]an Speaking only) - Milieu Protocol Maintain good personal hygiene: daily Encourage regular showers, daily Remind patient to perform daily oral care, daily Assist patient to perform ADL's Maintain personal safety: every shift Educate patient to report safety concerns to staff, every shift Monitor environment for contraband/sharps Medication safety: Monitor for expected outcome, potential side effects: every shift, Assess barriers to learning: every shift, Assess readiness for medication education: every shift <Danyelle Ayoub - Last Filed: 11/20/18 08:52> - Diagnosis (1) Major depressive disorder Status: Chronic Interventions: Medication management, Individual and group therapy, Psychoeducation 11/20/18 08:52 <Glenda Amanda - Last Filed: 11/22/18 13:22> Family Contact Family involvement: Famliy/SO not involved - Outside Agency [facility] Care involvment: Information-sharing Agency contact number: [phone] - Goals for Treatment Patient goals for treatment: Pt will improve overall mood. Pt will be free of suicide thoughts. Pt will contract for safety on the unit. Pt will comply with prescribed medication. Pt will attend clinical and activity groups. Pt will develop coping skills to better assist him with depression and increased anxiety. Discharge/Continuing Care - Education Needs Education Needs: Patient Medication, Patient Diagnosis/Disease Process, Patient Coping Skills, Patient Community resources, Patient Activities of Daily Living, Patient Health Practices/Safety, Patient Personal Hygiene/Grooming, Patient Aftercare Safety Plan - Discharge Discharge Criteria: Tolerates medication w/o severe side effects, Free of Suicidal thoughts, Free of agitation, Normal sleep pattern, Ability to care for self, Reduction of target symptoms Discharge to:: [facility] - Additional Comments 11/22/18 13:16 Pt seen and discussed in team meeting. Pt reported reason for hospitalization as increased depression and suicide ideation with plan to jump in front of ongoing traffic or off a bridge. Since admission pt has been isolate and withdrawn. Pt refuses to attend clinical and activity groups, stating "I have no desire to do anything, i just want to lay down and be left alone." Pt reported having no desire to talk to anyone or to see anyone. Pt reported feeling "so-so." Command And Control Specialist assessed for SI and pt stated 'I don't know how to answer that. This illness is transparent. My only thoughts are peace and tranquility and to look for God." Pt denied AVH. Pt reported having dreams of someone following him, but denied having nightmares. Pt reported his sleep is good and appetite is good. Pt encouraged to shower and shave, but refused. Pt's social and medical issues reviewed and discussed. Pt's medications reviewed. Tx plan reviewed. Pt reported having no questions for the team. Pt aware of intake appointment for [facility] on 11/27/2018. Pt also signed consent for mortgage or loan underwriter to contact [address] [place] [address]. to continue to follow case. - Treatment Team Participation Discussed with Family/SO: No Was Patient/Family/SO present at Treatment Team Meeting: Yes
[2018-11-20 08:19] LABS: FERRITIN 10.7 ng/Ml (17.9-464)
--- NOTE | 2018-11-20 08:23 | RAD ---
Date of service: 11/20/2018 HISTORY: crisis COMPARISON: Radiographs 11/10/2018. TECHNIQUE: Chest PA and lateral views FINDINGS: LUNGS: No acute pulmonary disease. Trace biapical fibrotic changes reiterated. Hyperinflation may indicate COPD as well as flattened hemidiaphragms. PLEURA: No significant pleural effusion identified. No pneumothorax apparent. CARDIOVASCULAR: Calcific atherosclerotic changes are seen related to the thoracic aorta. Normal cardiac size. No pulmonary vascular congestion. OSSEOUS STRUCTURES: No significant abnormalities. VISUALIZED UPPER ABDOMEN: Normal. OTHER FINDINGS: None. IMPRESSION: Questionable COPD. No acute cardiopulmonary disease appreciable in the interval.
--- NOTE | 2018-11-20 09:29 | PCM.PSYCH ---
Initial Psychiatric Evaluation - Initial Psychiatric Evaluation Type of Admission: Voluntary Legal Status: Capacity Chief Complaint (in patient's own words): Depression Patient's Reaction to Hospitalization: HPI: 68 yo male w/ h/o MDD, presents w/ worsening depression, suicidal ideation to jump in front of a car or jump off a bridge, poor sleep, low energy, poor appetite. No AH/VH/paranoia/delusions. A + O x 4. PPHx: H/o 5 previous psychiatric admissions; reports that he has a history of suicide attempt in 2012 by jumping in front of a car. Admitted to [facility] 1 week ago and was treated w/ Remeron 15 mg PO HS at that time, he reports compliance with the medications. PMHx: GERD, Allergies ALL: NKDA SHx: Lives in a snf, from [place], denies drugs/etoh, smokes 2-3 cig/day, declined smoking cessation Current Medications: Active Medications Generic Name Dose Route Start Last Admin Trade Name Freq PRN Reason Stop Dose Admin Acetaminophen 650 mg 11/20/18 05:04 Tylenol 325mg Tab PO Q4 PRN Pain, moderate (4-7) Al Hydrox/Mg Hydrox/Simethicone 30 ml 11/20/18 05:04 Maalox Plus 30 Ml PO Q4 PRN Dyspepsia Bismuth Subsalicylate 524 mg 11/20/18 05:04 Pepto-Bismol PO Q4 PRN Diarrhea Lorazepam 0.5 mg 11/20/18 05:04 Ativan PO 12/04/18 05:05 HS PRN Insomnia Lorazepam 0.5 mg 11/20/18 05:04 Ativan PO 12/04/18 05:05 Q6 PRN Anixety/Agitation Magnesium Hydroxide 30 ml 11/20/18 05:04 Milk Of Magnesia PO HS PRN Constipation Mirtazapine 30 mg 11/20/18 22:00 Remeron PO HS PALOMA Montelukast Sodium 10 mg 11/20/18 09:00 Singulair PO DAILY [facility] Pantoprazole Sodium 40 mg 11/20/18 09:00 Protonix Ec Tab PO DAILY [facility] Past Psychiatric History - Past Psychiatric History Previous Treatment History: Inpatient Pertinent Medical Hx (Current Medical&Sleep Prob, Allergies): Allergies Allergy/AdvReac Type Severity Reaction Status Date / Time No Known Allergies Allergy Verified 11/19/18 22:41 Mirtazapine [Remeron] 15 mg PO HS #30 tab 11/13/18 Montelukast [Singulair] 10 mg PO DAILY #30 tab 11/13/18 Pantoprazole [Protonix EC Tab] 40 mg PO DAILY #30 ect 11/13/18 Donepezil HCl [Aricept] 10 mg 11/20/18 Gabapentin [Neurontin] 100 mg PO BID 11/20/18 Review of Systems - Psychiatric Psychiatric: As Per HPI, Abnormal Sleep Pattern, Anhedonia, Anxiety, Change in Appetite, Depression, Difficulty Concentrating, Hopelessness, Irritability, Suicidal Ideation Mental Status Examination - Personal Presentation Personal Presentation: Looks stated age - Affect Affect: Constricted, Depressed - Motor Activity Motor Activity: Calm - Reliability in Providing Information Reliability in Providing Information: Fair - Speech Speech: Organized, Coherent - Mood Mood: Depressed - Formal Thought Process Formal Thought Process: No Impairment - Hallucinations/Delusions Additional comments: No AH/VH/paranoia/delusions - Obsessions/Compulsions Obsessions: No Compulsions: No - Cognitive Functions Orientation: Person, Place, Situation, Time Sensorium: Alert Attention/Concentration: Attentive Judgement: Intact, as evidence by: Insight regarding need for hospitalization Memory: Recent intact, as evidence by: Ability to recall events of the day - Risk Risk: Suicidal - Strength & Assets Inventory Strength & Assets Inventory: Cooperative - Limitations Limitations: Other (Homelessness, Poverty) DSM 5 DX - DSM 5 DSM 5 Diagnosis: Major Depressive Disorder, Severe, Recurrent - Recommended/Plan of Treatment Treatment Recommendations and Plan of Treatment: Major Depressive Disorder, Severe, Recurrent -Admit to psychiatry unit -Increase Remeron -Medicine consult -Individual and group therapy -Psychoeducation -Disposition planning Projected ELOS: 5-8 days Discharge Plan and Discharge Criteria: Discharge when patient is psychiatrically stable - Smoking Cessation Smoking Cessation Initiated: No Reason for not providing: Patient declined
[2018-11-20 09:46] LABS: IRON 51 ug/dL (49-181)
[2018-11-20 09:55] LABS: % IRON SATURATION 14 % (20-55); TOTAL IRON BINDING CAPACITY 356 ug/dL (250-450)
[2018-11-20] MEDS: Pantoprazole 40 mg EC Tab PO SCH (11:20)
[2018-11-20 17:42] LABS: FOLATE 12.6 ng/mL
--- NOTE | 2018-11-20 19:25 | CARD ---
APPROVED REPORT Date of service: 11/20/2018 EKG Measurement Heart [id number] <Conclusion> Normal sinus rhythm Left axis deviation Septal infarct, age undetermined Abnormal ECG
--- NOTE | 2018-11-21 08:36 | PCM.PYCHPN ---
Psychiatric Progress Note - Psychiatric Progress Note Patient seen today, length of contact: Pt evaluated, case discussed w/ team, chart reviewed Patient Chief Complaint: Depression Problems Identified/Issues Discussed: Patient continues to report feeling depressed, w/ low mood, low energy, anhedonia, low motivation to care for himself, poor sleep/appetite and hopelessness. He denies acute ideation to harm himself and is able to contract for safety at this time. No AH/VH/HI. No adverse effects to medications reported. Medication Change: No Medical Record Reviewed: Yes Consults ordered or reviewed: Medicine consult Mental Status Examination - Cognitive Function Orientation: Person, Place, Situation, Time Memory: Intact - Mood Mood: Depressed - Affect Affect: Constricted, Depressed - Speech Speech: Appropriate - Formal Thought Process Formal Thought Process: No Impairment Psychotic Thoughts and Behaviors: No AH/VH/paranoia/delusions - Suicidal Ideation Suicidal Ideation: No - Homicidal Ideation Homicidal Ideation: No Goal/Treatment Plan - Goal/Treatment Plan Need for Continued Stay: Remain at risks for inpatient hospitalization, Severe depression anxiety Progress Toward Problem(s) and Goals/Treatment Plan: Major Depressive Disorder, Severe, Recurrent -Continue Remeron -Medicine consult -Individual and group therapy -Psychoeducation -Disposition planning Estimated Date of D/C: 11/24/18
[2018-11-21] MEDS: Pantoprazole 40 mg EC Tab PO SCH (08:46)
[2018-11-22] MEDS: Pantoprazole 40 mg EC Tab PO SCH (08:34)
--- NOTE | 2018-11-22 08:51 | PCM.PYCHPN ---
Psychiatric Progress Note - Psychiatric Progress Note Patient seen today, length of contact: Pt evaluated, case discussed w/ team, chart reviewed Patient Chief Complaint: Depression Problems Identified/Issues Discussed: Patient continues to feel depressed and anxious, but states that his mood is starting to improve. He continues to have low energy/motivation. He believes the increase in Remeron has helped his sleep and appetite. He denies acute ideation to harm himself and is able to contract for safety at this time. No AH/VH/HI. No adverse effects to medications reported. Medication Change: No Medical Record Reviewed: Yes Consults ordered or reviewed: Medicine consult Mental Status Examination - Cognitive Function Orientation: Person, Place, Situation, Time Memory: Intact - Mood Mood: Depressed - Affect Affect: Constricted, Depressed - Speech Speech: Appropriate - Formal Thought Process Formal Thought Process: No Impairment Psychotic Thoughts and Behaviors: No AH/VH/paranoia/delusions - Suicidal Ideation Suicidal Ideation: No - Homicidal Ideation Homicidal Ideation: No Goal/Treatment Plan - Goal/Treatment Plan Need for Continued Stay: Remain at risks for inpatient hospitalization, Severe depression anxiety Progress Toward Problem(s) and Goals/Treatment Plan: Major Depressive Disorder, Severe, Recurrent -Continue Remeron -Medicine consult -Individual and group therapy -Psychoeducation -Disposition planning Estimated Date of D/C: 11/24/18
[2018-11-22] MEDS: guaiFENesin-DM 600-30 mg ER Tab PO PRN (16:19)
[2018-11-22] MEDS: guaiFENesin 100 mg/5 ml Syrup UD PO PRN (16:20)
[2018-11-23] MEDS: guaiFENesin 100 mg/5 ml Syrup UD PO PRN ×2 (08:35→21:12)
[2018-11-23] MEDS: guaiFENesin-DM 600-30 mg ER Tab PO PRN (08:35)
[2018-11-23] MEDS: Pantoprazole 40 mg EC Tab PO SCH (08:36)
--- NOTE | 2018-11-23 08:47 | PCM.PYCHPN ---
Psychiatric Progress Note - Psychiatric Progress Note Patient seen today, length of contact: Pt evaluated, case discussed w/ team, chart reviewed Patient Chief Complaint: Depression Problems Identified/Issues Discussed: Patient reports that he feels less depressed w/ more energy and more motivation. He denies acute ideation to harm himself. No AH/VH/HI. No adverse effects to medications reported. He continues to report some sleep disturbances. Medication Change: No Medical Record Reviewed: Yes Consults ordered or reviewed: Medicine consult Mental Status Examination - Cognitive Function Orientation: Person, Place, Situation, Time Memory: Intact - Mood Mood: Depressed - Affect Affect: Constricted - Speech Speech: Appropriate - Formal Thought Process Formal Thought Process: No Impairment Psychotic Thoughts and Behaviors: No AH/VH/paranoia/delusions - Suicidal Ideation Suicidal Ideation: No - Homicidal Ideation Homicidal Ideation: No Goal/Treatment Plan - Goal/Treatment Plan Need for Continued Stay: Remain at risks for inpatient hospitalization, Severe depression anxiety Progress Toward Problem(s) and Goals/Treatment Plan: Major Depressive Disorder, Severe, Recurrent -Continue Remeron -Medicine consult -Individual and group therapy -Psychoeducation -Disposition planning- will likely discharge tomorrow as the patient is improvi ng clinically Estimated Date of D/C: 11/24/18
--- NOTE | 2018-11-24 00:14 | CP.PCM.CON ---
History of Present Illness - History of Present Illness History of Present Illness: Medical consult: 68 y/o homeless male pt with a PMH of mood disorder and PNA was admitted for worsening depression with suicidal ideations. At present, the pt reports an ongoing cough with productive sputum. Review of Systems: Reviewed and no additional remarkable complaints except cough. Objective Appears: Calm, Non-toxic, No Acute Distress. Head Exam: NORMAL INSPECTION, normocephalic. Eye Exam: Normal eye inspection, EOMI, PERRLA. Respiratory Exam: NORMAL BREATHING PATTERN, breath sounds reveal diminished wheeze. Cardiovascular Exam: +S1, +S2. RRR. GI & Abdominal Exam: Soft, non-tender, non-distended. Neurological Exam: Alert, awake, oriented x3. Psychiatric exam: Depressed mood. Calm and cooperative. Skin exam: Pale, warm and dry. Assessment/Impression/Plan: 1.) Major Depression -Medically, the pt is stable at this time. -Robitussin for cough. -Monitor iron levels; Add ferrous sulfate daily. -supplemental O2 PRN. -Continue current treatment. Past Patient History - Past Medical History & Family History Past Medical History?: No - Past Social History Alcohol: None Drugs: Denies - CARDIAC Hx Cardiac Disorders: No Hx Hypertension: No - PULMONARY Hx Pneumonia: Yes Hx Tuberculosis: No - NEUROLOGICAL HX Cerebrovascular Accident: No Hx Seizures: No - HEENT Hx HEENT Problems: No Other/Comment: Wears bifocal glasses. - RENAL Hx Chronic Kidney Disease: No - ENDOCRINE/METABOLIC Hx Endocrine Disorders: No - HEMATOLOGICAL/ONCOLOGICAL Hx Cancer: No Hx Human Immunodeficiency Virus (HIV): No - INTEGUMENTARY Hx Dermatological Problems: No - MUSCULOSKELETAL/RHEUMATOLOGICAL Hx Musculoskeletal Disorders: No Hx Falls: Yes - GASTROINTESTINAL Hx Gastritis: Yes - GENITOURINARY/GYNECOLOGICAL Hx Sexually Transmitted Disorders: No - PSYCHIATRIC Hx Depression: Yes Hx Substance Use: No - SURGICAL HISTORY Hx Appendectomy: No Hx Carotid Endarterectomy: No Hx Cholecystectomy: No Hx Coronary Artery Bypass Graft: No Hx Coronary Stent: No Hx Tonsillectomy: No - ANESTHESIA Hx Anesthesia: Yes Hx Anesthesia Reactions: No Hx Malignant Hyperthermia: No Meds Home Medications: Home Medication List Medication Instructions Recorded Confirmed Type Mirtazapine [Remeron] 30 mg PO HS #30 tab 11/23/18 Rx Allergies/Adverse Reactions: Allergies Allergy/AdvReac Type Severity Reaction Status Date / Time No Known Allergies Allergy Verified 11/19/18 22:41 - Medications Medications: Current Medications Acetaminophen (Tylenol 325mg Tab) 650 mg PO Q4 PRN PRN Reason: Pain, moderate (4-7) Stop: 11/24/18 07:00 Al Hydrox/Mg Hydrox/Simethicone (Maalox Plus 30 Ml) 30 ml PO Q4 PRN PRN Reason: Dyspepsia Stop: 11/24/18 07:00 Bismuth Subsalicylate (Pepto-Bismol) 524 mg PO Q4 PRN PRN Reason: Diarrhea Stop: 11/24/18 07:00 Guaifenesin (Robitussin) 100 mg PO Q4 PRN PRN Reason: Cough Last Admin: 11/23/18 21:12 Dose: 100 mg Guaifenesin/Dextromethorphan (Mucinex-Dm 600-30 Mg) 1 tab PO BID PRN PRN Reason: Cough Last Admin: 11/23/18 08:35 Dose: 1 tab Lorazepam (Ativan) 0.5 mg PO Q6 PRN PRN Reason: Anixety/Agitation Stop: 12/04/18 05:05 Magnesium Hydroxide (Milk Of Magnesia) 30 ml PO HS PRN PRN Reason: Constipation Stop: 11/24/18 07:00 Mirtazapine (Remeron) 30 mg PO HS [facility] Last Admin: 11/23/18 21:12 Dose: 30 mg Montelukast Sodium (Singulair) 10 mg PO DAILY [facility] Last Admin: 11/23/18 08:36 Dose: 10 mg Pantoprazole Sodium (Protonix Ec Tab) 40 mg PO DAILY [facility] Last Admin: 11/23/18 08:36 Dose: 40 mg Results - Vital Signs Recent Vital Signs: Last Vital Signs Temp 98.9 F 11/23/18 16:01 Pulse 84 11/23/18 16:01 Resp 20 11/23/18 16:01 BP 160/70 H 11/23/18 16:01 Pulse Ox 97 11/20/18 04:56 - Labs Result Diagrams: 11/20/18 02:50 11/20/18 02:50 Assessment & Plan (1) Depression Status: Acute
[2018-11-24 06:10] VITALS: BP 139/80; PULSE 76; RESP 18; TEMP 97.1
[2018-11-24] MEDS: Pantoprazole 40 mg EC Tab PO SCH (08:34)
--- NOTE | 2018-11-24 08:41 | PCM.PYCHDC ---
Mental Status Examination - Mental Status Examination Orientation: Person, Place, Situation, Time Memory: Intact Mood: Neutral Affect: Broad Speech: Appropriate Attention: WNL Concentration: WNL Association: WNL Fund of Knowledge: WNL Formal Thought Process: No Impairment Description of patient's judgement and insight: No AH/VH/paranoia/delusions Psychotic Thoughts and Behaviors: No AH/VH/paranoia/delusions Suicidal Ideation: No Current Homicidal Ideation?: No Discharge Summary - Discharge Note Reason for Hospitalization: HPI: 68 yo male w/ h/o MDD, presents w/ worsening depression, suicidal ideation to jump in front of a car or jump off a bridge, poor sleep, low energy, poor appetite. No AH/VH/paranoia/delusions. A + O x 4. PPHx: H/o 5 previous psychiatric admissions; reports that he has a history of suicide attempt in 2012 by jumping in front of a car. Admitted to [facility] 1 week ago and was treated w/ Remeron 15 mg PO HS at that time, he reports compliance with the medications. PMHx: GERD, Allergies ALL: NKDA SHx: Lives in a chcf, from [place], denies drugs/etoh, smokes 2-3 cig/day, declined smoking cessation Consultations:: List each consultation separately and include: 1. Reason for request. 2. Findings. 3. Follow-up Consultations: Medicine consult Summary of Hospital Course include:: 1. Description of specific treatment plan utilized for patients during their course of treatmen. 2. Summarize the time- course for resolution of acute symptoms and/or regressed behaviors. 3. Describe issues identified and worked on during hospitalization. 4. Describe medication utilized. 5. Describe medical problems identified and treated. 6. Reassessment of suicide risk Summary of Hospital Course: Patient was admitted to the psychiatry unit. Individual and group therapy were provided. Patient was stabilized on Remeron 30 mg PO HS. He denies acute depression/anxiety/AH/VH/paranoia/delusions/SI/HI. Psychoeducation provided on the importance of compliance with treatment and medications. Patient is psychiatrically stable for discharge at this time. - Diagnosis (1) Major depressive disorder Current Visit: No Status: Chronic - Final Diagnosis (DSM 5) Condition upon Discharge: STABLE DSM 5: Major Depressive Disorder Disposition: HOME/ ROUTINE Follow-up Treatment Plan: Major Depressive Disorder, Severe, Recurrent -Continue Remeron 30 mg PO HS -Patient is psychiatrically stable for discharge Prescriptions/Medication Reconciliation: Benzonatate [Tessalon Perles] 100 mg PO Q8 PRN #30 sgl PRN Reason: Cough Ferrous Sulfate [Feosol] 325 mg PO DAILY #30 tab Mirtazapine [Remeron] 30 mg PO HS #30 tab - Smoking Cessation Smoking Cessation Medication prescribed: No Reason for not providing: Patient declined - Antipsychotic Medications Pt discharged on 2 or more routine antipsychotic medications: No
== END 2018-11-24 09:30 | disposition home or self-care (01) | DRG 430 ==
LOC: H.ER 22:35 → H.ERHOLD 11-20 03:14 → H.STEP 11-20 04:58
PROVIDERS: ADMIT Psychiatry & Neurology Psychiatry; ATTEND Psychiatry & Neurology Psychiatry
PROC: GZHZZZZ Group Psychotherapy (ICD-10-PCS; principal; 2018-11-20)
PROC: GZ58ZZZ Individual Psychotherapy, Cognitive-Behavioral (ICD-10-PCS; 2018-11-20)
DX: F33.2 Major depressive disorder, recurrent severe without psychotic features (principal); R45.851 Suicidal ideations; K21.9 Gastro-esophageal reflux disease without esophagitis; Z91.5 Personal history of self-harm; Z87.01 Personal history of pneumonia (recurrent)